=== PATIENT | female | born 1960 | race Caucasian/White ===

== ENCOUNTER → 2020-04-21 06:55 | Outpatient (CLI) | payer BC, SELFPAY ==
[2020-04-21 17:59] LABS: SARS-CoV-2 RNA PCR Negative
== END ==
PROVIDERS: PCP Family Medicine; Visit Provider Family Medicine
DX: Z20.822 Contact with and (suspected) exposure to COVID-19 (principal)
CPT/HCPCS: C9803; U0003; U0005

== ENCOUNTER → 2020-05-22 09:47 | Outpatient (CLI) | payer BC, SELFPAY ==
--- NOTE | ~2020-05-22 | MM_ITS ---
EXAMINATION: MM screening nba BI w barney HISTORY: Screening mammogram TECHNIQUE: Craniocaudal and mediolateral oblique 3-D tomosynthesis images were obtained and synthetic 2-D images were generated. CAD analysis was submitted and interpreted. COMPARISON: 12/07/2011 bilateral digital screening mammogram BREAST PARENCHYMAL COMPOSITION: The breasts are almost entirely fatty. FINDINGS: There is no evidence of suspicious mass, calcification, or architectural distortion to sugg est malignancy in either breast. There has been no suspicious interval change. IMPRESSION: 1. No mammographic evidence of malignancy. 2. Recommend routine screening mammography in one year. BI-RADS Category 1: Negative Reviewed, dictated and finalized at location A.
--- NOTE | ~2020-05-22 | DEXA_ITS ---
Bone Density Report Name: Priscila Hinson Age: 60 Sex: Female Ethnicity: White Date of : 1960 Indication: postmenopausal; screening for osteoporosis; hysterectomy; Referring Provider: TRISHA IRVING Study: Bone densitometry was performed. Exam Date: May 22, 2020 Accession number: [id number] Bone Density: Region BMD T-score Z-score Classification AP Spine (L1-L4) 0.979 -0.6 0.9 Normal Femoral Neck (Left) 0.794 -0.5 0.9 Normal Total Hip (Left) 0.925 -0.1 0.9 Normal Femoral Neck (Right) 0.711 -1.2 0.1 Osteopenia Total Hip (Right) 0.859 -0.7 0.4 Normal Total Hip Mean 0.892 -0.4 0.7 Normal World Health Organization criteria for BMD impression classify patients as: Normal (T-score at or above -1.0), Osteopenia (T-score between -1.0 and -2.5), or Osteoporosis (T-score at or below -2.5). 10-year Fracture Risk(1): Major Osteoporotic Fracture 7.4% Hip Fracture 0.5% Reported Risk Factors: [place] (), Neck BMD=0.711, BMI=33.3 (1) FRAX(R) Version 3.08. Fracture probability calculated for an untreated patient. Fracture probability may be lower if the patient has received treatment. Previous Exams: Region Exam Age BMD T-score BMD Change BMD Change Date g/cm2 vs Baseline vs Previous AP Spine(L1-L4) 05/22/2020 60 0.979 -0.6 -0.157* -0.157* 05/27/2008 48 1.135 0.8 Total Hip(Left) 05/22/2020 60 0.925 -0.1 -0.171* -0.171* 05/27/2008 48 1.096 1.3 Total Hip(Right) 05/22/2020 60 0.859 -0.7 -0.096* -0.096* 05/27/2008 48 0.955 0.1 *Denotes significance at 95% confidence level, LSC for AP Spine = 0.022 g/cm2, LSC for Total Hip = 0.027 g/cm2 Clinical Information Provided by Patient: Has the following medical conditions: Hysterectomy Patient maximum height was 70 Menopause Age: 35 No regular weight bearing exercise Does not regularly consume dairy products Drinks caffeinated beverages Onset of menses at age 9 Number of children 2 Impression: The patient has low bone mass, based on the Right Femoral Neck T-score. The patient has an estimated ten-year risk of hip fracture of 0.5% and an estimated ten-year risk of major fracture of 7.4%, based on the WHO FRAX algorithm. The BMD for the AP Spine(L1-L4) decreased, changing by -0.157 since the last DXA exam. The BMD for the Total Hip(Left) decreased, changing by -0.171 since the last DXA exam. The BMD for the [place]
== END ==
PROVIDERS: PCP Family Medicine; Visit Provider Family Medicine
DX: Z12.31 Encounter for screening mammogram for malignant neoplasm of breast (principal); Z78.0 Asymptomatic menopausal state; M85.851 Other specified disorders of bone density and structure, right thigh
CPT/HCPCS: 77063; 77067; 77080

== ENCOUNTER 2020-07-05 08:24 | Inpatient (IN) | payer BC, SELFPAY ==
[2020-07-05] VITALS (41 sets, daily range): BP systolic 127–161; BP diastolic 65–100; PULSE 73–103; RESP 10–20; TEMP 36.4–37.5; O2SAT 88–100
--- NOTE | ~2020-07-05 | CT_ITS ---
EXAMINATION: CT abdomen pelvis w con EXAM DATE: 07/05/2020 09:36 INDICATION: Intermittent abdominal pain for 3 days. Nausea and vomiting. Diarrhea. TECHNIQUE: Spiral CT of the abdomen and pelvis was performed following intravenous injection of 100 m L Omnipaque 350. Axial, coronal and sagittal images of the abdomen and pelvis were reviewed. The do se-length product (DLP) for this examination was 1313.95 mGy-cm. The exposure was tailored according to patient size (auto mA exposure control), and iterative reconstruction (ASIR) was used as addition al dose reduction technique. Comparison is made to prior examination from 10/12/2017. FINDINGS: Mild mesenteric lymphadenopathy, with slightly hazy fat stranding, effie mesentery appearan ce. Largest lymph node measures 1.8 x 0.9 cm. This has developed compared to 2018 exam. Could be reac tive from gastroenteritis, mesenteric adenitis or panniculitis. Recommend 3 month follow-up abdomen C T to exclude less likely possibility of lymphoma or other malignancy. There is hepatic steatosis without suspicious focal lesion identified. Spleen, adrenal glands, pancre as are unremarkable. There are cholecystectomy clips. Portal and splenic veins are patent. Kidneys enhance symmetrically. There is no hydronephrosis. The uterus is not identified and has likely be en surgically resected. The bladder is unremarkable. The appendix is normal. The stomach and small bowel are unremarkable. There is colonic fluid, corre late for diarrhea. No free intraperitoneal gas. The heart is normal in size. There are no perica rdial or pleural effusions. The lung bases are unremarkable. There are no osteoblastic or osteolyti c lesions identified. There is mild lumbar dextroscoliosis. IMPRESSION: 1. Interval development mild mesenteric lymphadenopathy and effie mesentery most likely consideration s including reactive from gastroenteritis, mesenteric adenitis and/or panniculitis. 3 month follow-up CT abdomen to exclude malignancy. 2. Colonic fluid, diarrhea. 3. Hepatic steatosis. Reviewed, dictated and finalized at location A. IMPRESSION: 1. Interval development mild mesenteric lymphadenopathy and effie mesentery mos t likely considerations including reactive from gastroenteritis, mesenteric ean nitis and/or panniculitis. 3 month follow-up CT abdomen to exclude malignancy. 2. Colonic fluid, diarrhea. 3. Hepatic steatosis.
--- NOTE | ~2020-07-05 | XR_ITS ---
XR chest 1V DATE: 07/05/2020 09:41 INDICATION: Mid to right frontal chest pain TECHNIQUE: AP chest COMPARISON: None FINDINGS: Normal heart size. No hilar or mediastinal enlargement. No pulmonary infiltrate or consolid ation, pleural effusion or pulmonary vascular congestion or pneumothorax. Included skeletal structures are unremarkable. IMPRESSION: No active cardiopulmonary disease Reviewed, dictated and finalized at location B.
--- NOTE | 2020-07-05 08:34 | ED.GENADULT ---
HPI - General Adult General Chief complaint: Nausea/Vomiting/Diarrhea Stated complaint: N/V/D/CHEST PAIN Source: RN notes reviewed History of Present Illness HPI narrative: Patient presents to emergency department from home via EMS for abdominal chest pain. Patient states he began to become sick 2 days ago with numerous episodes of diarrhea states is associated diffuse abdominal pain as well as nausea but denies any emesis. Patient states that she developed pain in the lower midsternal chest described as a pressure EMS was called and patient received Zofran 4 mg aspirin and nitro in route by EMS the patient denies any fevers or chills shortness of breath or any other symptoms states she took no pain medication at home Related Data Allergies Allergy/AdvReac Type Severity Reaction Status Date / Time No Known Allergies Allergy Unknown Verified 07/05/20 08:29 Review of Systems Review of Systems: Narrative: Gen.: Denies fevers or chills ENT: Denies congestion Respiratory: Denies shortness of breath or cough CV: Chest pain GI: See HPI denies burning, urgency, frequency or hematuria Musculoskeletal: Denies back pain or muscle pain Neuro: Denies numbness, tingling, weakness or focal weakness Skin: Denies rash Except as documented, all other systems reviewed and negative PMFSH Past Medical History Medical History Benign essential HTN Calcaneal fracture Chronic constipation Diabetes mellitus Gallbladder & bile duct stone, acute cholecystitis and obstruction GERD (gastroesophageal reflux disease) Hyperlipidemia Vitamin D insufficiency Surgical History Surgical History History of partial hysterectomy Hx of cholecystectomy Family History Family History Sibling Acute myocardial infarction Other Diabetes mellitus Family history of alcoholism Family history of arthritis Family history of cardiovascular disease Hypertension Social History Social History Social History: Smoking status: Never smoker Second hand tobacco smoke exposure: No Alcohol intake: never Substance use: never Substance use type: does not use Additional living arrangements comments: Pt son lives with her Gender identity (if verbalized by the patient): Female Exam Narrative: Exam Narrative: APPEARANCE: No acute distress, nontoxic, resting in bed HEENT: Normocephalic, atraumatic, OMM RESPIRATORY: No respiratory distress, clear to auscultation bilaterally with no rhonchi wheezing or rales CARDIOVASCULAR: RRR s murmur ABDOMINAL: Soft nondistended diffusely tender to palpation no rebound or guarding MUSCULOSKELETAl: Moves all extremities. No clubbing, cyanosis or edema. NEURO: Awake and alert. Following commands, speech normal, no focal deficits SKIN:: Warm, dry. Normal Color PSYCHIATRIC: Normal affect/mood Course Course Emergency Course: Patient unable to tolerate p.o. in ED : Discussed with KIARA Hearn for Dr Cornejo presentation work-up agrees with admission admission at this time Discussed with patient and family results of workup and diagnosis. Discussed need for admission. Patient and family understand and agree to current treatment plan Vital Signs Vital signs: Vital Signs Temperature 99.5 F 07/05/20 08:22 Pulse Rate 103 H 07/05/20 08:22 Respiratory Rate 18 07/05/20 08:22 Blood Pressure 158/89 H 07/05/20 08:22 Pulse Oximetry 97 07/05/20 08:22 Temperature 99.5 F 07/05/20 08:22 Pulse Rate 87 07/05/20 09:42 Respiratory Rate 14 07/05/20 09:42 Blood Pressure 127/100 H 07/05/20 09:01 Pulse Oximetry 97 07/05/20 09:42 Medical Decision Making Vital Signs Vital Signs: Vital Signs Temperature 99.5 F 07/05/20 08:22 Pulse Rate 103 H 07/05/20 08:22 Respiratory
--- NOTE | 2020-07-05 08:35 | ECG_ITS ---
Measurements Intervals [place] Rate: 102 P: 35 MD: 155 QRS: -5 QRSD: 93 T: 13 QT: 347 QTc: 452 Interpretive Statements SINUS TACHYCARDIA POSSIBLE LEFT ATRIAL ENLARGEMENT DELAYED PRECORDIAL R/S TRANSITION BASELINE ARTIFACT- I, II, III, AVR, AVL, AVF, V1, V3-V6 BORDERLINE ECG Electronically Signed On 07-05-2020 8:47:16 CDT by Giuseppe Bustillos D.O.
[2020-07-05] MEDS: SODIUM CHLORIDE 0.9% IV 1,000 ML 999 ML IV CONT ×2 (08:40→15:26)
[2020-07-05 08:52] LABS: Basophils Percent Auto 0.6 % (0.2-1.2); Eosinophils Percent Auto 0.5 % (0-4.4); Hematocrit 47.4 % (37.0-47.0); Hemoglobin 16.1 g/dL (12.0-15.0); Immature Granulocyte Absolute 0.03 K/mm3 (0.00-0.031); Immature Granulocyte Percent A 0.5 % (0-0.5); Lymphocytes Absolute Auto 0.53 K/mm3 (0.9-3.2); Lymphocytes Percent Auto 8.3 % (18.3-44.2); Mean Corpuscular Hemoglobin 29.2 pg (26-34); Mean Corpuscular Volume 85.9 fl (80-100); Mean Platelet Volume 10.8 fl (7.4-10.4); Monocytes Absolute Auto 0.6 K/mm3 (0.1-0.6); Monocytes Percent Auto 9.1 % (2.6-8.5); Neutrophils Absolute Auto 5.2 K/mm3 (1.3-6.7); Platelet Count Result 191 k/mm3 (150-375); Red Blood Count 5.52 M/mm3 (4.2-5.4); Red Cell Distribution Width 13.2 % (11.5-14.5); White Blood Count 6.4 K/mm3 (4.5-10.0)
[2020-07-05 09:01] LABS: Prothrombin Time 14.1 Seconds (11.1-14.7)
[2020-07-05 09:02] LABS: Partial Thromboplastin Time 27.8 SECONDS (22.3-36.8)
[2020-07-05 09:28] LABS: Estimated CRCL calculation 126 ml/min; Estimated Glomerular Filt Rate > 60
--- NOTE | 2020-07-05 09:45 | PC.NURSE ---
return from ct and xray
[2020-07-05 10:24] LABS: Alanine Aminotransferase 35 U/L (4-35); Albumin Level 4.4 g/dL (3.5-5.1); Alkaline Phosphatase 79 U/L (38-126); Anion Gap 14 mmol/L (8-16); Aspartate Amino Transferase 38 U/L (14-36); Bilirubin,Total 2.6 mg/dL (0.2-1.3); Blood Urea Nitrogen 16 mg/dL (7-17); Calcium 9.3 mg/dL (8.4-10.2); Carbon Dioxide 17 mmol/L (22-30); Chloride 104 mmol/L (98-107); Estimated CRCL calculation 107 ml/min; Estimated Glomerular Filt Rate > 60; Glucose 208 mg/dL (65-105); Lipase 56 U/L (23-300); Potassium 3.6 mmol/L (3.4-5.0); Sodium 135 mmol/L (137-145); Troponin I < 0.012 ng/mL (0.000-0.034)
[2020-07-05] MEDS: DICYCLOMINE HCL INJ 20 MG/2 ML VIAL IM (11:56)
[2020-07-05 12:30] LABS: Add Urine Microscopic? YES; Appearance Urine Clear (Clear); Bacteria Urine Trace /hpf; Bilirubin Urine Negative (Negative); Blood Urine Negative (Negative); Color Urine Yellow (Yellow); Glucose Urine UA 3+ mg/dL (Negative); Ketones Urine 2+ mg/dL (Negative); Leukocyte Esterase Ur Negative LEU/UL (Negative); Mucus Urine Rare /lpf; Nitrate Urine Negative (Negative); Protein Urine 1+ mg/dL (Negative); RBC Urine 0-2 /hpf (0-2); Squamous Epithelial Cell Urine Occasional /hpf (Few); Urobilinogen Urine Negative mg/dL (<2.0)
[2020-07-05 12:32] LABS: Specific Grav Ur 1.015 (1.001-1.035)
--- NOTE | 2020-07-05 17:00 | PC.NURSE ---
This patient, Priscila Hinson, was admitted to [facility] Surg Room 302-01 on 07/05/20 @ 7262. Patient/family oriented to hospital policies and general routines including ID bracelet, bed and alarms, visiting hours, pain management, procedures, bathroom and other care routines, personal items, smoking policy, room service/diet, and visiting hours. Information on how to activate the Rapid Response Team has been discussed. Patient/Family are encouraged to report perceived risks to care and to ask questions if they do not understand what they are told or what they should do.
[2020-07-05] MEDS: SODIUM CHLORIDE 0.9% IV 1,000 ML 125 ML IV CONT (17:05)
[2020-07-05 18:19] LABS: Anion Gap 12 mmol/L (8-16); Blood Urea Nitrogen 15 mg/dL (7-17); Calcium 8.8 mg/dL (8.4-10.2); Carbon Dioxide 22 mmol/L (22-30); Chloride 104 mmol/L (98-107); Estimated CRCL calculation 107 ml/min; Estimated Glomerular Filt Rate > 60; Glucose 136 mg/dL (65-105); Magnesium 1.9 mg/dL (1.6-2.3); Potassium 3.4 mmol/L (3.4-5.0); Sodium 138 mmol/L (137-145)
[2020-07-05 18:22] LABS: CRP 3.4 mg/dL (<1.0)
[2020-07-05 18:30] LABS: Hemoglobin A1C 7.8 % (<5.7)
--- NOTE | 2020-07-05 18:30 | PM.IMHP ---
H&P: HPI History of Present Illness Date/Time: 07/05/20 18:30 Chief Complaint: Nausea and abdominal pain. Narrative: This is a 60-year-old female with diabetes, hypertension, and hyperlipidemia presented to the emergency department earlier today from home for evaluation of nausea and abdominal pain. She woke up on Sunday morning with severe nausea to the point where she has not been able to eat or drink. She also reports generalized abdominal cramping and reports innumerable bouts of liquid yellow stools over the past 2 days. It is my understanding that she ran a temperature up to 101? on both Sunday and Sunday however has not been febrile today. Previously she had issues with constipation and at one point time was prescribed plecanatide for IBS with constipation however she is no longer taking that as her bowels became more regular after discontinuing Ozempic. In place of Ozempic she was started on Synjardy and she has been taking that for the past couple of weeks. She denies recent travel, sick contacts, and recent antibiotic use. She denies blood in mucus in the stool. Review of Systems Review of Systems: Narrative: Twelve systems were reviewed with pertinent positives and negatives as per HPI. Weight has remained stable. No sinus congestion, rhinorrhea, otalgia, or odynophagia. She denies dysphagia. No chest pain, pleuritic pain, or palpitations. No cough or shortness of breath. She does not recall her last hemoglobin A1c. It does not sound like her diabetes is well controlled and she tells me that while on Ozempic her sugars typically were in the 300s though now since starting Synjardy they have mainly been in the mid 200s. No dysuria. She did not get vaccinated for COVID. Except as documented, all other systems were reviewed and are negative. REPLACED BY [facility] Past Medical History Medical History (Updated 07/05/20 @ 20:42 by Nadiya Vasquez PA-C) Benign essential HTN Calcaneal fracture Diabetes mellitus Gallbladder & bile duct stone, acute cholecystitis and obstruction Gastroesophageal reflux disease History of colon polyps Hyperlipidemia Vitamin D insufficiency Surgical History Surgical History (Updated 07/05/20 @ 20:38 by Nadiya Vasquez PA-C) History of cholecystectomy History of dilation and curettage History of partial hysterectomy Status post right foot surgery ORIF of calcaneal fracture. Family History Family History Sibling Acute myocardial infarction Mother CLL (chronic lymphocytic leukemia) Father Colon cancer Other Diabetes mellitus Family history of alcoholism Family history of arthritis Family history of cardiovascular disease Hypertension Social History Social History (Updated 07/05/20 @ 20:39 by Nadiya Vasquez PA-C) Social History: Surrogate decision maker: Kerrie Gomez, daughter. Code status: Full code. Smoking status: Never smoker Second hand tobacco smoke exposure: No Alcohol intake: never Substance use: never Substance use type: does not use Additional living arrangements comments: The patient lives in [place]. Her son is at home with her. She is . 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 Gender identity (if verbalized by the patient): Female Spiritual care concerns: No Meds Home Medications and Allergies Home Medications Medication Instructions Recorded Confirmed Type atorvastatin 10 mg tablet 10 mg PO DAILY #90 tablet 01/02/20 07/05/20 Rx pantoprazole 40 mg tablet,delayed 40 mg PO QAM #90 tablet 01/02/20 07/05/20 Rx release glimepiride 1 mg tablet 1 mg PO BID #180 tablet 03/29/20 07/05/20 Rx lisinopril 10 mg tablet 10 mg PO DAILY #90 tablet 03/29/20 07/05/20 Rx empagliflozin-metformin [Synjardy 1 tablet PO HS 07/05/20 07/05/20 History XR] meloxicam 15 mg PO DAILY PRN 07/05/20 07/05/20 History Allergies Allerg
[2020-07-05] MEDS: ONDANSETRON INJ 4 MG/2 ML VIAL IV PUSH (20:36)
[2020-07-05] MEDS: PANTOPRAZOLE SODIUM IV 40 MG VIAL IV PUSH (22:01)
[2020-07-06] MEDS: ONDANSETRON INJ 4 MG/2 ML VIAL IV PUSH ×3 (00:48→18:15)
[2020-07-06] MEDS: LOPERAMIDE HCL 2 MG CAPSULE PO ×2 (00:48→20:48)
[2020-07-06] MEDS: SODIUM CHLORIDE 0.9% IV 1,000 ML 125 ML IV CONT ×3 (00:56→20:29)
[2020-07-06 04:25] LABS: Glucose Point of Care 152 (65-105)
[2020-07-06] MEDS: ACETAMINOPHEN 325 MG TABLET 650 MG PO (05:15)
[2020-07-06 06:00] VITALS: BP 133/75; PULSE 80; RESP 18; TEMP 36.6; O2SAT 100
[2020-07-06 06:05] LABS: Basophils Percent Auto 0.7 % (0.2-1.2); Eosinophils Percent Auto 0.9 % (0-4.4); Hematocrit 40.3 % (37.0-47.0); Hemoglobin 13.5 g/dL (12.0-15.0); Immature Granulocyte Absolute 0.02 K/mm3 (0.00-0.031); Immature Granulocyte Percent A 0.4 % (0-0.5); Lymphocytes Absolute Auto 0.71 K/mm3 (0.9-3.2); Lymphocytes Percent Auto 15.6 % (18.3-44.2); Mean Corpuscular HGB Conc 33.5 g/dl (32-36); Mean Corpuscular Hemoglobin 28.5 pg (26-34); Mean Corpuscular Volume 85.2 fl (80-100); Mean Platelet Volume 10.5 fl (7.4-10.4); Monocytes Absolute Auto 0.6 K/mm3 (0.1-0.6); Monocytes Percent Auto 13.4 % (2.6-8.5); Neutrophils Absolute Auto 3.1 K/mm3 (1.3-6.7); Platelet Count Result 152 k/mm3 (150-375); Red Blood Count 4.73 M/mm3 (4.2-5.4); Red Cell Distribution Width 13.2 % (11.5-14.5); White Blood Count 4.5 K/mm3 (4.5-10.0)
[2020-07-06 06:07] LABS: Glucose Point of Care 131 (65-105)
[2020-07-06 06:16] LABS: Alanine Aminotransferase 27 U/L (4-35); Albumin Level 3.4 g/dL (3.5-5.1); Alkaline Phosphatase 56 U/L (38-126); Anion Gap 6 mmol/L (8-16); Aspartate Amino Transferase 26 U/L (14-36); Bilirubin,Total 1.4 mg/dL (0.2-1.3); Blood Urea Nitrogen 13 mg/dL (7-17); Calcium 8.2 mg/dL (8.4-10.2); Carbon Dioxide 21 mmol/L (22-30); Chloride 108 mmol/L (98-107); Estimated CRCL calculation 107 ml/min; Estimated Glomerular Filt Rate > 60; Glucose 131 mg/dL (65-105); Magnesium 1.8 mg/dL (1.6-2.3); Potassium 3.3 mmol/L (3.4-5.0); Sodium 135 mmol/L (137-145)
[2020-07-06] MEDS: ATORVASTATIN 10 MG TABLET PO (08:39)
[2020-07-06] MEDS: lisinopriL 10 MG TABLET PO (08:39)
[2020-07-06] MEDS: PANTOPRAZOLE SODIUM IV 40 MG VIAL IV PUSH ×2 (08:39→20:30)
[2020-07-06 08:40] LABS: Glucose Point of Care 115 (65-105)
[2020-07-06] MEDS: POTASSIUM CHLORIDE 20 MEQ TABLET 40 MEQ PO (11:35)
[2020-07-06 11:42] LABS: Glucose Point of Care 130 (65-105)
--- NOTE | 2020-07-06 13:20 | WPDGICN ---
Assessment and Plan Assessment and plan (1) Gastroenteritis: Code(s): K52.9 - Noninfective gastroenteritis and colitis, unspecified Status: Acute Assessment and Plan: Patient with abrupt onset of nausea vomiting diarrhea strongly suspicious for infectious etiology. Cannot exclude viral or bacterial. Agree with broad-spectrum culturing. IV fluid rehydration and supportive care. If symptoms fail to improve then antibiotics may be considered after review of culture results. 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 This suspicious for irritable bowel syndrome. Ultimately patient may benefit from fiber supplementation. Her current illness appears to be more infectious rather than her longstanding underlying IBS. (6) Elevated bilirubin: Code(s): R17 - Unspecified jaundice Status: Acute Assessment and Plan: Review of records reveal a chronic mild elevation of total bilirubin. Patient does have history of cholecystectomy in the past. Most likely this is unrelated to gallbladder disease. Will check bilirubin fractions. To exclude possible underlying Gilbert's syndrome. Would follow conservatively no additional therapy and is felt warranted at this point GI Consult Note Consult date/time: 07/06/20 13:20 HPI: Priscila Hinson is a 60 year old female I am asked to see at the request of the hospitalist service. Patient reports being in usual state of health until Sunday. She abruptly began to have watery profuse diarrhea stools. This is continued prompting her to be admitted the hospital. During this interval of time also had significant nausea initially with vomiting but still no appetite. She denies any bleeding. She may have felt febrile at home. But has had no significant fever since admission hospital. Patient denies any travel. She has had no recent unusual dietary intake. Family members at home have been healthy. She has had no recent change in medications. Past medical history is significant for irritable bowel syndrome with alternation in her bowel habits. Because of chronic constipation in the past she has taken Linzess. More recently fiber supplementation. Colonoscopy in 2012 revealed a hyperplastic colon polyp more recent follow-up colonoscopy was unremarkable 2018. An EGD approximately fiber 6 years ago was unremarkable as well. Patient has been treated for diabetes with various medications under the direction primary care service. Review of Systems Review of Systems: All systems reviewed & are unremarkable except as noted in HPI and below PMFSH Past Medical History Medical History (Updated 07/06/20 @ 13:26 by Delfino Velez MD) Benign essential HTN Calcaneal fracture Diabetes mellitus Gallbladder & bile duct stone, acute cholecystitis and obstruction Gastroesophageal reflux disease History of colon polyps Hyperlipidemia Vitamin D insufficiency Surgical History Surgical History (Updated 07/05/20 @ 20:38 by Nadiya Vasquez PA-C) History of cholecystectomy History of dilation and curettage History of partial hysterectomy Status post right foot surgery ORIF of calcaneal fracture. Family History Family History (
[2020-07-06 14:00] VITALS: BP 121/59; PULSE 70; RESP 16; TEMP 36.2; O2SAT 99
[2020-07-06 14:32] LABS: Bilirubin Indirect 1.6 mg/dL (0-1.1); Bilirubin,Total 1.5 mg/dL (0.2-1.3)
--- NOTE | 2020-07-06 15:04 | PM.IMPN ---
Progress Note: A&P Assessment and Plan (1) Gastroenteritis: Code(s): K52.9 - Noninfective gastroenteritis and colitis, unspecified Status: Acute Assessment and Plan: 07/06/20 15:04 The patient presents today with diffuse abdominal discomfort and severe nausea with no reported oral intake over the past [address] of the abdomen and pelvis demonstrated mild mesenteric lymphadenopathy in effie mesentery likely reactive from gastroenteritis, mesenteric adenitis and/or panniculitis. White blood cell count is normal and she has been afebrile (although reportedly had a fever of 101? over the weekend) thus I am not certain antibiotics would be of any benefit at this time. For now we will send stool for culture and treat conservatively with judicious IV fluid rehydration, antiemetics, and anti motility agents. She is quite dehydrated with ketones in her urine however DKA is felt to be unlikely. In fact a repeat BMP showed improvement in all labs. Total bilirubin and AST are mildly elevated, likely due to viral gastroenteritis. Repeat LFTs in a.m. and monitor. Her glucose was well over 300 today. Hemoglobin A1c is pending at this time. Initiate sliding scale insulin, Accu-Cheks, and hypoglycemic protocol. Her blood pressures have been running a bit high and will be monitored closely. Continue antihypertensives and monitor daily. 07/06 today patient states the pain is not as bad and has had 2 BM still nauseated, suspect viral versus bacterial enteritis stool culture the pending, denies any fever or chills, will consult GI for further recommendation. (2) Dehydration: Code(s): E86.0 - Dehydration Status: Acute Assessment and Plan: Will gently hydrate the patient (3) Elevated LFTs: Code(s): R79.89 - Other specified abnormal findings of blood chemistry Status: Acute Assessment and Plan: Patient total bilirubin remains elevated alkaline phosphatase is within normal unlikely obstruction will consult GI for further recommendation (4) Gastroesophageal reflux disease: Code(s): K21.9 - Gastro-esophageal reflux disease without esophagitis Status: Acute Assessment and Plan: Will continue PPI (5) Benign essential HTN: Code(s): I10 - Essential (primary) hypertension Status: Acute Assessment and Plan: Will continue home regimen and monitor (6) Diabetes mellitus: Qualifiers: Diabetes mellitus type: type 2 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 Additional Plan The patient presents today with diffuse abdominal discomfort and severe nausea with no reported oral intake over the past [address] of the abdomen and pelvis demonstrated mild mesenteric lymphadenopathy in effie mesentery likely reactive from gastroenteritis, mesenteric adenitis and/or panniculitis. White blood cell count is normal and she has been afebrile (although reportedly had a fever of 101? over the weekend) thus I am not certain antibiotics would be of any benefit at this time. For now we will send stool for culture and treat conservatively with judicious IV fluid rehydration, antiemetics, and anti motility agents. She is quite dehydrated with ketones in her urine however DKA is felt to be unlikely. In fact a repeat BMP showed improvement in all labs. Total bilirubin and AST are mildly elevated, likely due to viral gastroenteritis. Repeat LFTs in a.m. and monitor. Her glucose was well over 300 today. Hemoglobin A1c is pending at this time. Initiate sliding scale insulin, Accu-Cheks, and hypoglycemic protocol. Her blood pressures singh
[2020-07-06 17:30] LABS: Glucose Point of Care 123 mg/dl (65-105)
[2020-07-06 21:31] VITALS: BP 136/68; PULSE 74; RESP 18; TEMP 36.9; O2SAT 97
[2020-07-07] MEDS: ONDANSETRON INJ 4 MG/2 ML VIAL IV PUSH ×2 (00:28→04:54)
[2020-07-07] MEDS: ACETAMINOPHEN 325 MG TABLET 650 MG PO ×3 (00:32→15:25)
[2020-07-07 00:45] LABS: Glucose Point of Care 107 mg/dl (65-105)
[2020-07-07 00:58] LABS: Glucose Point of Care 128 mg/dl (65-105)
[2020-07-07] MEDS: LOPERAMIDE HCL 2 MG CAPSULE PO ×2 (01:51→04:54)
[2020-07-07] MEDS: SODIUM CHLORIDE 0.9% IV 1,000 ML 100 ML IV CONT ×2 (04:45→15:23)
[2020-07-07 05:31] VITALS: BP 123/57; PULSE 58; RESP 18; TEMP 36.5; O2SAT 98
[2020-07-07 06:14] LABS: Hematocrit 39.1 % (37.0-47.0); Hemoglobin 13.2 g/dL (12.0-15.0); Mean Corpuscular HGB Conc 33.8 g/dl (32-36); Mean Corpuscular Hemoglobin 28.5 pg (26-34); Mean Corpuscular Volume 84.4 fl (80-100); Mean Platelet Volume 10.7 fl (7.4-10.4); Platelet Count Result 153 k/mm3 (150-375); Red Blood Count 4.63 M/mm3 (4.2-5.4); Red Cell Distribution Width 13.2 % (11.5-14.5); White Blood Count 3.5 K/mm3 (4.5-10.0)
[2020-07-07 06:17] LABS: Glucose Point of Care 118 mg/dl (65-105)
[2020-07-07 06:30] LABS: Alanine Aminotransferase 25 U/L (4-35); Alkaline Phosphatase 48 U/L (38-126); Anion Gap 4 mmol/L (8-16); Aspartate Amino Transferase 26 U/L (14-36); Bilirubin,Total 1.5 mg/dL (0.2-1.3); Blood Urea Nitrogen 6 mg/dL (7-17); Calcium 8.3 mg/dL (8.4-10.2); Carbon Dioxide 23 mmol/L (22-30); Chloride 112 mmol/L (98-107); Estimated CRCL calculation 126 ml/min; Estimated Glomerular Filt Rate > 60; Glucose 118 mg/dL (65-105); Magnesium 1.8 mg/dL (1.6-2.3); Potassium 3.1 mmol/L (3.4-5.0); Sodium 139 mmol/L (137-145)
[2020-07-07 07:45] LABS: Glucose Point of Care 116 mg/dl (65-105)
[2020-07-07] MEDS: PANTOPRAZOLE SODIUM IV 40 MG VIAL IV PUSH ×2 (08:19→20:59)
[2020-07-07] MEDS: lisinopriL 10 MG TABLET PO (08:19)
[2020-07-07] MEDS: ATORVASTATIN 10 MG TABLET PO (08:19)
--- NOTE | 2020-07-07 10:45 | WPDGIPROGNO ---
Progress Note: A&P Assessment and Plan (1) Gastroenteritis: Code(s): K52.9 - Noninfective gastroenteritis and colitis, unspecified Status: Acute Assessment and Plan: gastroenteritis with nausea vomiting diarrhea. Appears to be infectious etiology. Currently correlates with CT scan finding of adenitis. Will start broad-spectrum antibiotic coverage now the cultures have been obtained. (2) Elevated bilirubin: Code(s): R17 - Unspecified jaundice Status: Acute Assessment and Plan: Elevated bilirubin noticed on previous lab testing. Likely related to Gilbert's syndrome. She has previously had cholecystectomy. No evidence for obstruction in the biliary tree (3) IBS (irritable bowel syndrome): Code(s): K58.9 - Irritable bowel syndrome without diarrhea Status: Acute (4) Mesenteric adenitis: Code(s): I88.0 - Nonspecific mesenteric lymphadenitis Status: Acute Assessment and Plan: CT scan suggest mesenteric adenitis. This is somewhat nonspecific. Could be a viral infection. Plan to start broad-spectrum antibiotics for coverage likely this correlates with her abdominal pain and diarrhea. Subjective Date/time seen: 07/07/20 10:45 Patient continues to report diarrhea. No more nausea or vomiting. She had some improvement with Imodium trial. Reports abdominal pain appears to be Continuing to some degree.. Review of Systems Review of Systems: All systems reviewed & are unremarkable except as noted in HPI and below Exam Narrative: Exam Narrative: Physical exam reveals her to be alert. Afebrile. Anicteric. Lungs are clear. Heart without murmur. Abdomen bowel sounds present soft no localized tenderness. She does have more discomfort on the right low abdomen compared to elsewhere. Objective Data Vital Signs Vital Signs: Vital Signs - 24 hr 07/06/20 14:00 07/06/20 21:31 07/07/20 05:31 Temperature 97.1 F L 98.4 F 97.7 F Pulse Rate 70 74 58 L Respiratory Rate 16 18 18 Blood Pressure 121/59 L 136/68 123/57 L Pulse Oximetry 99 97 98 Intake/Output Intake/Output: Intake & Output 07/04/20 07/05/20 07/06/20 07/07/20 23:59 23:59 23:59 23:59 Intake Total 1100 4520 1710 Output Total 200 300 100 Balance 900 4220 1610 Meds/Results Medications: Active Medications Generic Name Dose Route Start Last Admin Trade Name Freq PRN Reason Stop Dose Admin Acetaminophen 650 mg 07/05/20 20:51 07/07/20 08:22 Acetaminophen 325 Mg Tablet PO 650 mg Q6H PRN Administration Pain Atorvastatin Calcium 10 mg 07/06/20 09:00 07/07/20 08:19 Atorvastatin 10 Mg Tablet PO 10 mg DAILY SHAHEEN Administration Dextrose 12.5 gm 07/05/20 20:48 Dextrose 50% 25 Gm/50 Ml Syringe IV PUSH PRN PRN Hypoglycemia Protocol Glucagon 1 mg 07/05/20 20:48 Glucagon For Inj 1 Mg Vial IM PRN PRN Hypoglycemia Protocol Glucose 15 gm 07/05/20 20:48 Glucose Oral Gel 15 Gm Of Glucse In 37.5 Gm Tube PO PRN PRN Hypoglycemia Protocol Sodium Chloride 1,000 mls @ 100 mls/hr 07/05/20 14:20 07/07/20 04:45 Normal Saline Iv IV CONT 100 mls/hr .Q10H SHAHEEN Administration Dextrose 1,000 mls @ 100 mls/hr 07/05/20 20:48 Dextrose 5% 1,000 Ml IVPB PRN PRN Hypoglycemia Protocol Insulin Aspart 3 - 6 units 07/06/20 08:00 07/07/20 07:53 Insulin Aspart (*Bkc) 100 Units/Ml SUB-Q Not Given TIDWM SHAHEEN Protocol Lisinopril 10 mg 07/06/20 09:00 07/07/20 08:19 Lisinopril 10 Mg Tablet PO 10 mg DAILY SHAHEEN Administration Loperamide HCl 2 mg 07/05/20 20:48 07/07/20 04:54 Loperamide Hcl 2 Mg Capsule PO 2 mg PRN PRN Administration Diarrhea Ondansetron HCl 4 mg 07/05/20 14:18 07/07/20 04:54 Ondansetron Inj 4 Mg/2 Ml Vial IV PUSH 4 mg Q4H PRN Administration Nausea Pantoprazole Sodium 40 mg 07/05/20 21:00 07/07/20 08:19 Pantoprazole Sodium I
[2020-07-07 11:33] LABS: Glucose Point of Care 141 mg/dl (65-105)
[2020-07-07] MEDS: metroNIDAZOLE 250 MG TABLET PO ×3 (13:51→20:58)
[2020-07-07 14:00] VITALS: BP 123/63; PULSE 64; RESP 20; TEMP 36.4; O2SAT 99
[2020-07-07 15:02] LABS: Alanine Aminotransferase 25 U/L (4-35); Albumin Level 3.2 g/dL (3.5-5.1); Alkaline Phosphatase 57 U/L (38-126); Anion Gap 4 mmol/L (8-16); Aspartate Amino Transferase 23 U/L (14-36); Bilirubin,Total 1.4 mg/dL (0.2-1.3); Blood Urea Nitrogen 5 mg/dL (7-17); CRP 1.3 mg/dL (<1.0); Calcium 8.5 mg/dL (8.4-10.2); Carbon Dioxide 24 mmol/L (22-30); Chloride 111 mmol/L (98-107); Estimated CRCL calculation 107 ml/min; Estimated Glomerular Filt Rate > 60; Glucose 143 mg/dL (65-105); Potassium 3.1 mmol/L (3.4-5.0); Sodium 139 mmol/L (137-145)
[2020-07-07 15:19] LABS: Erythrocyte Sedimentation Rate 20 mm/hr (0-20)
--- NOTE | 2020-07-07 15:27 | PM.IMPN ---
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 of the abdomen and pelvis demonstrated mild mesenteric lymphadenopathy in effie mesentery likely reactive from gastroenteritis, mesenteric adenitis and/or panniculitis. White blood cell count is normal and she has been afebrile (although reportedly had a fever of 101? over the weekend) thus I am not certain antibiotics would be of any benefit at this time. For now we will send stool for culture and treat conservatively with judicious IV fluid rehydration, antiemetics, and anti motility agents. She is quite dehydrated with ketones in her urine however DKA is felt to be unlikely. In fact a repeat BMP showed improvement in all labs. Total bilirubin and AST are mildly elevated, likely due to viral gastroenteritis. Repeat LFTs in a.m. and monitor. Her glucose was well over 300 today. Hemoglobin A1c is pending at this time. Initiate sliding scale insulin, Accu-Cheks, and hypoglycemic protocol. Her blood pressures have been running a bit high and will be monitored closely. Continue antihypertensives and monitor daily. Patient hemoglobin A1c 7.8 will monitor with sliding scale. 07/06 today patient states the pain is not as bad and has had 2 BM still nauseated, suspect viral versus bacterial enteritis stool culture the pending, denies any fever or chills, will consult GI for further recommendation. Patient total bilirubin remains elevated alkaline phosphatase is within normal unlikely obstruction will consult GI for further recommendation 07/07/2020 patient improving but not yet at baseline. Continue current care. Anticipate her to be discharged home tomorrow in a.m.. Subjective Date/time seen: 07/07/20 15:27 Patient starting to feel better last episode of diarrhea last night, still with nausea Exam Narrative: Exam Narrative: GEN: comfortable, NAD, Moderately obese HEENT: eyes are clear and none icteric, EOMI HEART: RR S1S2 ABD: BS+, Soft and diffusely tender Lower extremities: no edema SKIN: nonjaundiced Neuro: grossly intact. Objective Data Vital Signs Vital Signs: Vital Signs - 24 hr 07/06/20 21:31 07/07/20 05:31 07/07/20 14:00 Temperature 98.4 F 97.7 F 97.6 F Pulse Rate 74 58 L 64 Respiratory Rate 18 18 20 Blood Pressure 136/68 123/57 L 123/63 Pulse Oximetry 97 98 99 Intake/Output Intake/Output: Intake & Output 07/04/20 07/05/20 07/06/20 07/07/20 23:59 23:59 23:59 23:59 Intake Total 1100 4520 2830 Output Total 200 300 100 Balance 900 4220 2730 Meds/Results Medications: Active Medications Generic Name Dose Route Start Last Admin Trade Name Freq PRN Reason Stop Dose Admin Acetaminophen 650 mg 07/05/20 20:51 07/07/20 15:25 Acetaminophen 325 Mg Tablet PO 650 mg Q6H PRN Administration Pain RATED 1-3 Atorvastatin Calcium 10 mg 07/06/20 09:00 07/07/20 08:19 Atorvastati
[2020-07-07 16:01] LABS: D Dimer 0.46 ug/mL (<0.48)
[2020-07-07 16:33] LABS: Glucose Point of Care 128 mg/dl (65-105)
[2020-07-07] MEDS: CIPROFLOXACIN 250 MG TABLET PO (20:58)
[2020-07-07 21:14] LABS: Glucose Point of Care 185 mg/dl (65-105)
[2020-07-07 22:00] VITALS: BP 109/51; PULSE 63; RESP 20; TEMP 36.2; O2SAT 98
[2020-07-08] MEDS: oxyCODONE/ACETAMINOPHEN (*CRX) 5-325 MG TABLET 1 TABLET PO (01:09)
[2020-07-08] MEDS: SODIUM CHLORIDE 0.9% IV 1,000 ML 100 ML IV CONT ×2 (01:16→11:42)
[2020-07-08 05:56] VITALS: BP 117/62; PULSE 58; RESP 20; TEMP 36.3; O2SAT 98
[2020-07-08 06:28] LABS: Hemoglobin 12.5 g/dL (12.0-15.0); Mean Corpuscular HGB Conc 33.8 g/dl (32-36); Mean Corpuscular Volume 85.8 fl (80-100); Mean Platelet Volume 10.7 fl (7.4-10.4); Platelet Count Result 165 k/mm3 (150-375); Red Blood Count 4.31 M/mm3 (4.2-5.4); Red Cell Distribution Width 13.2 % (11.5-14.5); White Blood Count 3.9 K/mm3 (4.5-10.0)
[2020-07-08 06:40] LABS: Alanine Aminotransferase 22 U/L (4-35); Albumin Level 3.1 g/dL (3.5-5.1); Alkaline Phosphatase 54 U/L (38-126); Anion Gap 5 mmol/L (8-16); Aspartate Amino Transferase 19 U/L (14-36); Bilirubin,Total 1.1 mg/dL (0.2-1.3); Blood Urea Nitrogen 5 mg/dL (7-17); Calcium 8.4 mg/dL (8.4-10.2); Carbon Dioxide 24 mmol/L (22-30); Chloride 111 mmol/L (98-107); Estimated CRCL calculation 126 ml/min; Estimated Glomerular Filt Rate > 60; Glucose 148 mg/dL (65-105); Magnesium 1.7 mg/dL (1.6-2.3); Sodium 140 mmol/L (137-145)
[2020-07-08 07:46] LABS: Glucose Point of Care 151 mg/dl (65-105)
--- NOTE | 2020-07-08 08:44 | WPDGIPROGNO ---
Progress Note: A&P Assessment and Plan (1) Mesenteric adenitis: Code(s): I88.0 - Nonspecific mesenteric lymphadenitis Status: Acute Assessment and Plan: Mesenteric adenitis suggested by CT scan. This appears to correlate with her symptoms of nausea vomiting diarrhea and abdominal pain. At the present time continue a 1 week course of Cipro and Flagyl empirically. This may be viral versus infectious. Patient is clinically improving. Suggest advancing to regular diet in early discharge today if others agree. (2) Elevated bilirubin: Code(s): R17 - Unspecified jaundice Status: Acute Assessment and Plan: A bilirubin is been present for some time. Could be related to infection. Cannot exclude Gilbert's syndrome. No additional workup warranted at this time. Patient has had previous cholecystectomy. (3) Gastroenteritis: Code(s): K52.9 - Noninfective gastroenteritis and colitis, unspecified Status: Acute Assessment and Plan: Patient's symptom complex most consistent with infectious gastroenteritis. She does have mesenteric adenitis by CT scan. Now on Flagyl and Cipro. Suggest 10 you in this for 1 week after discharge empirically. Cultures have been negative to date. Subjective Date/time seen: 07/08/20 08:44 Patient feels much improved today. Abdominal pain has lessened. Tolerating diet. Diarrhea has improved as well. No longer with nausea. Review of Systems Review of Systems: All systems reviewed & are unremarkable except as noted in HPI and below Exam Narrative: Exam Narrative: Physical exam reveals patient be alert. Vital signs are stable. She is afebrile. HEENT exam reveals her to be anicteric. Lungs are clear. Heart without murmur. Abdomen bowel sounds are present soft nontender with no organomegaly. Digital rectal exam is deferred at this Objective Data Vital Signs Vital Signs: Vital Signs - 24 hr 07/07/20 14:00 07/07/20 22:00 07/08/20 05:56 Temperature 97.6 F 97.2 F L 97.4 F L Pulse Rate 64 63 58 L Respiratory Rate 20 20 20 Blood Pressure 123/63 109/51 L 117/62 Pulse Oximetry 99 98 98 Intake/Output Intake/Output: Intake & Output 07/05/20 07/06/20 07/07/20 07/08/20 23:59 23:59 23:59 23:59 Intake Total 1100 4520 4270 1200 Output Total 200 300 100 Balance 900 4220 4170 1200 Meds/Results Medications: Active Medications Generic Name Dose Route Start Last Admin Trade Name Freq PRN Reason Stop Dose Admin Acetaminophen 650 mg 07/05/20 20:51 07/07/20 15:25 Acetaminophen 325 Mg Tablet PO 650 mg Q6H PRN Administration Pain RATED 1-3 Atorvastatin Calcium 10 mg 07/06/20 09:00 07/07/20 08:19 Atorvastatin 10 Mg Tablet PO 10 mg DAILY SHAHEEN Administration Ciprofloxacin 250 mg 07/07/20 21:00 07/07/20 20:58 Ciprofloxacin 250 Mg Tablet PO 250 mg Q12HR SHAHEEN Administration Dextrose 12.5 gm 07/05/20 20:48 Dextrose 50% 25 Gm/50 Ml Syringe IV PUSH PRN PRN Hypoglycemia Protocol Glucagon 1 mg 07/05/20 20:48 Glucagon For Inj 1 Mg Vial IM PRN PRN Hypoglycemia Protocol Glucose 15 gm 07/05/20 20:48 Glucose Oral Gel 15 Gm Of Glucse In 37.5 Gm Tube PO PRN PRN Hypoglycemia Protocol Sodium Chloride 1,000 mls @ 100 mls/hr 07/05/20 14:20 07/08/20 01:16 Normal Saline Iv IV CONT 100 mls/hr .Q10H SHAHEEN Administration Dextrose 1,000 mls @ 100 mls/hr 07/05/20 20:48 Dextrose 5% 1,000 Ml IVPB PRN PRN Hypoglycemia Protocol Insulin Aspart 3 - 6 units 07/06/20 08:00 07/08/20 08:24 Insulin Aspart (*Bkc) 100 Units/Ml SUB-Q Not Given TIDWM SHAHEEN Protocol Lisinopril 10 mg 07/06/20 09:00 07/07/20 08:19 Lisinopril 10 Mg Tablet PO 10 mg DAILY SHAHEEN Administration Loperamide HCl 2 mg 07/05/20 20:48 07/07/20 04:54 Loperamide Hcl 2 Mg Capsule PO 2 mg PRN PRN Administration Diarrhea Metronidazole
[2020-07-08] MEDS: ATORVASTATIN 10 MG TABLET PO (08:50)
[2020-07-08] MEDS: CIPROFLOXACIN 250 MG TABLET PO (08:50)
[2020-07-08] MEDS: metroNIDAZOLE 250 MG TABLET PO ×2 (08:51→13:49)
[2020-07-08] MEDS: lisinopriL 10 MG TABLET PO (08:51)
[2020-07-08] MEDS: PANTOPRAZOLE SODIUM IV 40 MG VIAL IV PUSH (08:51)
[2020-07-08] MEDS: ACETAMINOPHEN 325 MG TABLET 650 MG PO (11:25)
[2020-07-08 12:12] LABS: Glucose Point of Care 187 mg/dl (65-105)
[2020-07-08] MEDS: ONDANSETRON HCL ODT 4 MG TABLET PO (12:32)
--- NOTE | 2020-07-08 17:49 | PM.DS ---
DS: Admitting Diagnosis Admitting Diagnosis Admitting Diagnosis: (1) Gastroenteritis: Code(s): K52.9 - Noninfective gastroenteritis and colitis, unspecified Status: Acute (2) Dehydration: Code(s): E86.0 - Dehydration Status: Acute (3) Elevated LFTs: Code(s): R79.89 - Other specified abnormal findings of blood chemistry Status: Acute (4) Gastroesophageal reflux disease: Code(s): K21.9 - Gastro-esophageal reflux disease without esophagitis Status: Acute (5) Benign essential HTN: Code(s): I10 - Essential (primary) hypertension Status: Acute (6) Diabetes mellitus: Qualifiers: Diabetes mellitus type: type 2 Diabetes 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 DS: Discharge Diagnosis Discharge Diagnosis (1) Infectious gastroenteritis: Code(s): A09 - Infectious gastroenteritis and colitis, unspecified Status: Acute (2) Elevated bilirubin: Code(s): R17 - Unspecified jaundice Status: Acute (3) IBS (irritable bowel syndrome): Code(s): K58.9 - Irritable bowel syndrome without diarrhea Status: Acute (4) Elevated LFTs: Code(s): R79.89 - Other specified abnormal findings of blood chemistry Status: Acute (5) Mesenteric adenitis: Code(s): I88.0 - Nonspecific mesenteric lymphadenitis Status: Acute (6) Dehydration: Code(s): E86.0 - Dehydration Status: Acute (7) Gastroesophageal reflux disease: Code(s): K21.9 - Gastro-esophageal reflux disease without esophagitis Status: Acute (8) Diarrhea: Code(s): R19.7 - Diarrhea, unspecified Status: Acute (9) Nausea and vomiting: Code(s): R11.2 - Nausea with vomiting, unspecified Status: Acute (10) Abdominal pain: Code(s): R10.9 - Unspecified abdominal pain Status: Acute DS: Summary Hospital Course Hospital Course: The patient presents today with diffuse abdominal discomfort and severe nausea with no reported oral intake over the past [address] of the abdomen and pelvis demonstrated mild mesenteric lymphadenopathy in effie mesentery likely reactive from gastroenteritis, mesenteric adenitis and/or panniculitis. White blood cell count is normal and she has been afebrile (although reportedly had a fever of 101? over the weekend) thus I am not certain antibiotics would be of any benefit at this time. For now we will send stool for culture and treat conservatively with judicious IV fluid rehydration, antiemetics, and anti motility agents. She is quite dehydrated with ketones in her urine however DKA is felt to be unlikely. In fact a repeat BMP showed improvement in all labs. Total bilirubin and AST are mildly elevated, likely due to viral gastroenteritis. Repeat LFTs in a.m. and monitor. Her glucose was well over 300 today. Hemoglobin A1c is pending at this time. Initiate sliding scale insulin, Accu-Cheks, and hypoglycemic protocol. Her blood pressures have been running a bit high and will be monitored closely. Continue antihypertensives and monitor daily GI was consulted and pt was maintained on IV abx for suspected infectious gastroenteritis. She was rehydrated w IVFs. She improved slowly and at time of discharge was tolerating PO w mild nausea likely associated w abx therapy. Diarrhea had resolved as well as vomiting. Pt discharged home in stable condition and advised to follow up w her PCP and GI for ongoing care and follow up imaging. Time Spent with Patient Time attestation: Total time spent providing >30 min Exam Narrative: Exam Narrative: GEN: comfortable, NAD, Moderately obese HEENT: eyes are clear and none icteric, EOM
== END 2020-07-08 14:50 | disposition home or self-care (01) | DRG 392 ==
LOC: ANHED 14:21 → ANH3MEDSUR 16:05
PROVIDERS: Family Medicine; Internal Medicine Gastroenterology; Physician Assistant; Admitting Provider Internal Medicine; Emergency Provider Emergency Medicine; PCP Family Medicine; Visit Provider Hospitalist
DX: A09 Infectious gastroenteritis and colitis, unspecified (principal); R17 Unspecified jaundice; E86.0 Dehydration; I88.0 Nonspecific mesenteric lymphadenitis; I10 Essential (primary) hypertension; E11.9 Type 2 diabetes mellitus without complications; K21.9 Gastro-esophageal reflux disease without esophagitis; E78.5 Hyperlipidemia, unspecified; E55.9 Vitamin D deficiency, unspecified; E66.9 Obesity, unspecified; Z68.32 Body mass index [BMI] 32.0-32.9, adult; Z90.49 Acquired absence of other specified parts of digestive tract; Z90.711 Acquired absence of uterus with remaining cervical stump
CPT/HCPCS: 36415; 51701; 71045; 74177; 80048; 80053; 81001; 82247; 82248; 82948; 83036; 83690; 83735; 84484; 85025; 85027; 85380; 85610; 85652; 85730; 86140; 87015; 87045; 87046; 87269; 87272; 87427; 93005; 96361; 96365; 96372; 96375; 96376; 99285; A9270; C9113; G0378; J0131; J0500; J2405; J7030; Q9967

== ENCOUNTER → 2021-07-29 15:42 | Outpatient (CLI) | payer BC, SELFPAY ==
--- NOTE | ~2021-07-29 | XR_ITS ---
EXAMINATION: XR chest 2V 07/29/2021 16:01 INDICATION: Fatigue PROCEDURE: 2 view chest COMPARISON: 07/05/2020 FINDINGS: The lungs are clear. The cardiomediastinal silhouette is within normal limits. There are no pleural effusions. There is no pneumothorax suspected. IMPRESSION: 1: NO ACUTE CARDIOPULMONARY DISEASE. Reviewed, dictated and finalized at location B.
== END ==
PROVIDERS: PCP Family Medicine; Visit Provider Nurse Practitioner Gerontology
DX: R53.83 Other fatigue (principal)
CPT/HCPCS: 71046

== ENCOUNTER → 2021-08-10 07:35 | Outpatient (CLI) | payer BC, SELFPAY ==
--- NOTE | ~2021-08-10 | MMUS_ITS ---
EXAMINATION: MM diagnostic nba BI w barney, US breast LT limited HISTORY: 2 medial left breast lumps TECHNIQUE: ML, MLO and CC 3-D tomosynthesis images of both breasts were performed and synthetic 2-D i mages were generated. CAD analysis was submitted and interpreted. High resolution targeted left breas t ultrasound was performed. COMPARISON: 06/08/2020, 12/07/2011 bilateral screening mammogram examinations BREAST PARENCHYMAL COMPOSITION: The breasts are almost entirely fatty. FINDINGS: MAMMOGRAPHIC FINDINGS: No suspicious mass or architectural distortion, malignant calcification, skin thickening or retractio n or significant new or developing density is detected. ULTRASOUND: Targeted ultrasound was performed at the area of clinical complaint of medial left breast lumps at 9: 00 8 cm from the nipple. No suspicious mass or shadowing is detected. IMPRESSION: 1. No mammographic evidence of malignancy 2. Routine mammographic screening is recommended BI-RADS Category 1: Negative Reviewed, dictated and finalized at location A. IMPRESSION: 1. No mammographic evidence of malignancy 2. Routine mammographic screening is recommended BI-RADS Category 1: Negative
== END ==
PROVIDERS: PCP Family Medicine; Visit Provider Nurse Practitioner Gerontology
DX: R92.8 Other abnormal and inconclusive findings on diagnostic imaging of breast (principal); N63.25 Unspecified lump in the left breast, overlapping quadrants
CPT/HCPCS: 76642; 77062; 77066; G0279

== ENCOUNTER 2021-08-12 14:41 | Outpatient (CLI) | payer BC, SELFPAY ==
--- NOTE | ~2021-08-12 | XR_ITS ---
EXAMINATION: XR thoracic spine 3V DATE: 08/12/2021 15:22 INDICATION: Thoracic back pain TECHNIQUE: AP, lateral and lateral swimmer's views of the thoracic spine were obtained. COMPARISON: None. FINDINGS: The vertebral body heights and alignment are normal. There is moderate loss of intervertebr al disc space height at multiple levels in the thoracic spine. Small degenerative osteophytes project from the anterior endplates of multiple vertebral bodies. IMPRESSION: 1. Moderate thoracic spondylosis without acute findings. Reviewed, dictated and finalized at location F.
== END 2021-08-12 14:42 | disposition home or self-care (01) ==
PROVIDERS: PCP Family Medicine; Visit Provider Family Medicine
DX: M47.894 Other spondylosis, thoracic region (principal)
CPT/HCPCS: 72072

== ENCOUNTER 2021-11-10 09:35 | Outpatient (CLI) | payer BC, SELFPAY ==
--- NOTE | ~2021-11-10 | US_ITS ---
EXAMINATION: US pelvic complete w TV DATE: 11/10/2021 10:11 INDICATION: Right adnexal pain for one and half months. Comparison:No prior studies for comparison. TECHNIQUE: Multiple transabdominal and endovaginal sonographic images of the pelvis performed. FINDINGS: The uterus is surgically absent. The right ovary measures 11 x 7 x 6 mm and the left ovary is not visualized. . Normal doppler signal in both ovaries. There is no free fluid in the pelvis. There are no abnormal masses seen on either side. IMPRESSION: 1. Unremarkable pelvic ultrasound status post hysterectomy. Reviewed, dictated and finalized at location A.
== END 2021-11-10 09:36 | disposition home or self-care (01) ==
PROVIDERS: PCP Family Medicine; Visit Provider Nurse Practitioner Gerontology
DX: R10.9 Unspecified abdominal pain (principal)
CPT/HCPCS: 76830; 76856

== ENCOUNTER 2021-11-19 12:23 | Outpatient (CLI) | payer BC, SELFPAY ==
--- NOTE | ~2021-11-19 | CT_ITS ---
EXAMINATION: CT abdomen pelvis wo con DATE: 11/19/2021 14:16 INDICATION: Abdominal pain. TECHNIQUE: Computed tomography (CT) of the abdomen and pelvis was performed without intravenous contr ast. Automated exposure control and iterative reconstruction technique were employed. The dose-length product was 1141.99 mGy-cm. COMPARISON: CT abdomen and pelvis 07/05/2020 FINDINGS: The visualized portions of the lung bases demonstrate minimal atelectasis. A calcified left lung nodule is consistent with old granulomatous disease. No pleural effusion. The heart size is nor mal. No pericardial effusion. There is diffuse hepatic steatosis. There are changes of cholecystectom y. The spleen, pancreas, adrenal glands, and kidneys are normal. There is no urolithiasis. There are no dilated loops of bowel. The appendix is normal. There are no pathologically enlarged lymph nodes. There is no free intraperitoneal fluid. There is severe lumbar spondylosis. IMPRESSION: 1. Diffuse hepatic steatosis. Reviewed, dictated and finalized at location B.
== END 2021-11-19 12:24 | disposition home or self-care (01) ==
PROVIDERS: PCP Family Medicine; Visit Provider Physician Assistant
DX: R10.9 Unspecified abdominal pain (principal); K76.0 Fatty (change of) liver, not elsewhere classified
CPT/HCPCS: 74176

== ENCOUNTER → 2022-04-04 07:28 | Outpatient (CLI) | payer BC, SELFPAY ==
--- NOTE | ~2022-04-04 | XR_ITS ---
XR sacrum coccyx min 2V DATE: 04/04/2022 08:00 INDICATION: Low back pain TECHNIQUE: AP, angled AP and lateral views of sacrum and coccyx COMPARISON: April 04, 2022 lumbar spine FINDINGS: Lumbar degenerative disc disease, most severe at L4-5. Normal alignment at the pubic symphysis and sacroiliac joints. No sacral bone destruction is evident . No fracture of the sacrum coccyx is noted. IMPRESSION: No significant abnormality of the sacrum or coccyx Multilevel lumbar degenerative disc disease Reviewed, dictated and finalized at location A. MONIA DISTILLER
--- NOTE | ~2022-04-04 | XR_ITS ---
XR lumbar spine 2-3V DATE: 04/04/2022 08:00 INDICATION: Low back pain TECHNIQUE: AP, lateral, coned lateral lumbosacral views COMPARISON: None FINDINGS: There is mild lumbar dextroscoliosis. There is osteopenia. Normal alignment of the lumbar spine. No fracture or bone destruction or spondylolisthesis. The inclu ded lower thoracic and lumbar pedicles are intact. Mild degenerative disc disease at L1-2. Moderately severe degenerative disease at L3-4 Severe degenerative disease at L4-5. The sacroiliac joints are intact. Status post cholecystectomy. IMPRESSION: Osteopenia Mild dextroscoliosis Multilevel degenerative disc disease, most severe at L4-5 Reviewed, dictated and finalized at location A. SIT WORKER
== END ==
PROVIDERS: PCP Family Medicine; Visit Provider Nurse Practitioner Gerontology
DX: K62.89 Other specified diseases of anus and rectum (principal); M51.36 Other intervertebral disc degeneration, lumbar region
CPT/HCPCS: 72100; 72220

== ENCOUNTER 2022-05-04 00:59 | Day surgery (SDC) | payer BC, SELFPAY ==
[2022-05-04 07:37] VITALS: BP 124/71; PULSE 79; RESP 18; TEMP 36.6; O2SAT 98
[2022-05-04] MEDS: LACTATED RINGERS 1,000 ML 150 ML IV CONT (07:47)
[2022-05-04 07:54] LABS: Glucose Point of Care 123 mg/dl (65-105)
--- NOTE | 2022-05-04 08:31 | WPDHPUPDATE1 ---
History and Physical Update Update Date/Time: 05/04/22 08:31 History and Physical has been reviewed, including an updated exam of the patient. There are NO changes in the patient's condition. Risks, benefits, and alternatives have been discussed and questions answered. Patient agrees to proceed with procedure. Patient appears to have multiple complaints do not automatically appear connected. Because of complaints of left upper quadrant pain after eating an EGD will be performed today.
--- NOTE | 2022-05-04 08:48 | WPDANESEPPF ---
Anes - Initial Pre Proc Eval Procedure: Operation Date: 05/04/22 09:00 Proposed Procedures p Esophagogastroduodenoscopy - Delfino Velez MD Date/Time: 05/04/22 08:48 Surgeon: Delfino Velez MD Pre Op Diagnosis: nausea, vomiting, LUQP, black stools Patient Data Age: 62 Gender: F Height: 1.78 m Weight: 92.2 kg Last Vital Signs Temp 97.8 F 05/04/22 07:37 Pulse 79 05/04/22 07:37 Resp 18 05/04/22 07:37 BP 124/71 05/04/22 07:37 Pulse Ox 98 05/04/22 07:37 O2 Del Method Room Air 05/04/22 07:37 Allergies Allergy/AdvReac Type Severity Reaction Status Date / Time No Known Allergies Allergy Unknown Verified 05/04/22 07:36 Home Medications Medication Instructions Recorded Confirmed Type buspirone 5 mg tablet See Rx Instructions .Route 08/17/21 04/25/22 Rx .COMPLEX #90 tabs atorvastatin 10 mg tablet 10 mg PO DAILY #90 tabs 01/01/22 04/25/22 Rx pen needle, diabetic 32 gauge x #100 ea 02/21/22 04/13/22 Rx 5/32 (1st Tier Unifine Pentips) blood sugar diagnostic (Accu-Chek #100 ea 03/21/22 04/13/22 Rx Geetha Plus test strips) blood sugar diagnostic (Blood #50 ea 04/04/22 04/13/22 Rx Glucose Test strips) blood-glucose meter #1 ea 04/04/22 04/13/22 Rx blood-glucose meter (Accu-Chek #1 ea 04/04/22 04/13/22 Rx Geetha Plus Meter) empagliflozin 12.5 mg-metformin ER 2 tablet PO DAILY 90 days #180 tabs 04/05/22 04/25/22 Rx 1,000 mg tablet,extended rel 24 hr (Synjardy XR) tirzepatide 5 mg/0.5 mL 5 mg (0.5 mL) subcut WEEKLY 30 04/05/22 04/25/22 Rx subcutaneous pen injector days #2 mL (Mounjaro) meloxicam 15 mg tablet See Rx Instructions .Route 04/11/22 04/25/22 Rx .COMPLEX #90 tabs clonazepam 0.5 mg tablet 0.5 mg PO QHS PRN anxiety #30 tabs 04/12/22 04/25/22 Rx budesonide 3 mg 9 mg PO DAILY 4 weeks #84 ea 04/13/22 04/25/22 Rx capsule,delayed,extended release sucralfate 1 gram tablet (Carafate) 1 g PO Q6H 1 month #120 tabs 04/13/22 04/25/22 Rx pantoprazole 40 mg tablet,delayed 40 mg PO BID 1 month #60 tabs 04/18/22 04/25/22 Rx release lisinopril 10 mg tablet See Rx Instructions .Route 04/28/22 05/04/22 Rx .COMPLEX #90 tabs Laboratory Tests 05/04/22 07:48 POC Capillary Glucose 123 mg/dl H mg/dl (65-105) Patient hx anesthesia problems: none Family hx anesthesia problems: none Results Review: All pre-operative results and documents have been reviewed as part of the pre-operative evaluation. [facility] Past Medical History Medical History (Updated 04/13/22 @ 09:34 by Patricia Ramirez APN-C) Benign essential HTN Calcaneal fracture Cardiac murmur Cervical spondylosis with radiculopathy Chronic insomnia Diarrhea Elevated LFTs ROSALINDA (generalized anxiety disorder) Gallbladder & bile duct stone, acute cholecystitis and obstruction Gastroesophageal reflux disease History of colon polyps Hyperlipidemia IBS (irritable bowel syndrome) Infectious gastroenteritis Left breast lump Long-term insulin use Mesenteric adenitis Nausea & vomiting Postmenopausal Thoracic spondylosis TMJ arthralgia Type 2 diabetes mellitus Vitamin D insufficiency Surgical History Surgical History History of cholecystectomy History of dilation and curettage History of partial hysterectomy Status post right foot surgery ORIF of calcaneal fracture. Family History Family History Sibling Acute myocardial infarction Mother CLL (chronic lymphocytic leukemia) Father Colon cancer Other Diabetes mellitus Family history of alcoholism Family history of arthritis Family history of cardiovascular disease Hypertension Social History Social History Social History: Surrogate decision maker: Kerrie Gomez, daughter. Code status: Full code. Smoking status: Never smoker Second hand
[2022-05-04 09:24] VITALS: BP 129/74; PULSE 77; RESP 20; O2SAT 98
[2022-05-04 09:34] VITALS: BP 141/88; PULSE 74; RESP 38; O2SAT 98
[2022-05-04 09:44] VITALS: BP 155/86; PULSE 67; RESP 22; O2SAT 99
== END 2022-05-04 09:53 | disposition home or self-care (01) ==
PROVIDERS: PCP Family Medicine; Visit Provider Internal Medicine Gastroenterology
PROC: 0DJ08ZZ Inspection of Upper Intestinal Tract, Via Natural or Artificial Opening Endoscopic (ICD-10-PCS; CPT 43235; principal; 2022-05-04 09:00)
DX: R10.12 Left upper quadrant pain (principal); Z79.84 Long term (current) use of oral hypoglycemic drugs; I10 Essential (primary) hypertension; E78.5 Hyperlipidemia, unspecified; E11.9 Type 2 diabetes mellitus without complications; F41.1 Generalized anxiety disorder; K21.9 Gastro-esophageal reflux disease without esophagitis; E66.9 Obesity, unspecified; Z68.29 Body mass index [BMI] 29.0-29.9, adult
CPT/HCPCS: 43239; 82948; 87081; J2704; J7120

== ENCOUNTER 2022-06-20 09:31 | Outpatient (CLI) | payer BC, SELFPAY ==
--- NOTE | ~2022-06-20 | XR_ITS ---
EXAMINATION: XR barium swallow w SBFT DATE: 06/20/2022 12:41 INDICATION: Nausea and vomiting. Bloating. TECHNIQUE: The patient drank thick barium, gas-producing crystals, and thin barium. Fluoroscopy of th e esophagus and small bowel was performed. Fluoroscopy exposure time was 0.4 minutes. Radiographs of the abdomen were obtained. The total number of images was 223. COMPARISON: CT abdomen and pelvis 11/19/2021 FINDINGS: BARIUM ESOPHAGRAM: There is no mass or stricture of the esophagus. Esophageal motility is normal. There is no hiatal her yusuf. There was no gastroesophageal reflux with provocative maneuvers. SMALL BOWEL SERIES: The small bowel shows a normal folding pattern. Specifically, the terminal ileum is normal. Transit t bill to the colon was 2.5 hours. IMPRESSION: 1. Normal esophagram. 2. Normal small bowel series. Reviewed, dictated and finalized at location A.
== END 2022-06-20 09:32 | disposition home or self-care (01) ==
PROVIDERS: PCP Family Medicine Adolescent Medicine; Visit Provider Nurse Practitioner Family
DX: K21.9 Gastro-esophageal reflux disease without esophagitis (principal); R10.9 Unspecified abdominal pain
CPT/HCPCS: 74240

== ENCOUNTER 2022-10-12 15:46 | Emergency (ER) | payer BC, SELFPAY ==
--- NOTE | ~2022-10-12 | CT_ITS ---
EXAMINATION: CT brain wo con DATE: 10/12/2022 20:40 INDICATION: Head injury TECHNIQUE: Computed tomography (CT) of the head was performed without intravenous contrast. Sagittal and coronal reconstructions were performed. The mA was adjusted according to patient size. Iterative reconstruction technique was employed. The dose-length product was 605.33 mGy-cm. COMPARISON: None FINDINGS: No fracture. No acute intracranial hemorrhage, acute infarction or abnormal extra axial fluid collect ion. There is mild scattered white matter hypoattenuation consistent with chronic small vessel ischem ic disease. Symmetric prominence of the sulci consistent with mild age-appropriate diffuse cerebral v olume loss. Ventricles are normal and symmetric. No mass/mass effect. The orbits, paranasal sinuses a nd mastoid air cells are normal. IMPRESSION: 1. No fracture or acute intracranial process. 2. Age-related changes including mild diffuse volume loss and mild scattered white matter hypoattenua tion consistent with chronic small vessel schema disease. Reviewed, dictated and finalized at location A. IMPRESSION: 1. No fracture or acute intracranial process. 2. Age-related changes including mild diffuse volume loss and mild scattered wh ite matter hypoattenuation consistent with chronic small vessel schema disease.
--- NOTE | ~2022-10-12 | XR_ITS ---
EXAMINATION: XR elbow LT min 3V DATE: 10/12/2022 17:26 INDICATION: Left elbow pain post fall TECHNIQUE: Anteroposterior, two oblique and lateral views of the left elbow were obtained. COMPARISON: None. FINDINGS: Alignment is normal. No fracture or joint effusion. Mild osteoarthritis at the ulnotrochlear articula tion. Soft tissues are unremarkable. IMPRESSION: 1. No acute osseous abnormality or left elbow joint effusion. Reviewed, dictated and finalized at location A.
--- NOTE | ~2022-10-12 | XR_ITS ---
EXAMINATION: XR_RIBSLTCXR1_CR DATE: 10/12/2022 17:26 INDICATION: Left rib pain post fall TECHNIQUE: A frontal inspiratory view of the chest and 3 views of the left ribs were obtained. COMPARISON: Chest radiograph dated 07/29/2021 FINDINGS: No rib fractures identified. Couple calcified nodules in the left lung consistent with old granulomat ous disease. No other airspace opacities, pulmonary edema, pleural effusion or pneumothorax. Cardiome diastinal silhouette is normal. Cholecystectomy clips in right upper quadrant. Mild lumbar dextrocurv ature with moderate spondylosis. IMPRESSION: 1. No rib fracture or acute cardiopulmonary disease. Reviewed, dictated and finalized at location A.
--- NOTE | ~2022-10-12 | CT_ITS ---
EXAMINATION: CT cervical spine wo con DATE: 10/12/2022 20:41 INDICATION: Neck pain post trauma with head injury TECHNIQUE: Computed tomography (CT) of the cervical spine was performed without intravenous contrast. Automated exposure control and iterative reconstruction technique were employed. The dose-length pro duct was 299.95 mGy-cm. COMPARISON: None FINDINGS: Mild cervicothoracic dextrocurvature. Straightening of the normal cervical lordosis. Vertebral body h eights are normal. No fracture. Moderate disc height loss at C3-C4 through C7-T1 with posterior disc osteophyte complex at each level resulting in mild to moderate central canal stenosis at C5-C6 and C6 -C7 and mild central canal stenosis at C3-C4 and C4-C5 multilevel bilateral moderate to severe cervic al uncovertebral osteoarthritis. Severe facet osteoarthritis on the left at C2-C3 and C3-C4 and bilat erally at C7-T1. Mild to moderate neural foraminal stenosis. Remaining cervical levels. This contribu viri to moderate neural foraminal stenosis bilaterally at C3-C4 with mild neural foraminal stenosis at the remaining levels. Small amount of atherosclerotic calcific location at the right carotid bulb. C oarse calcification is in the thyroid. Cervical soft tissues are otherwise unremarkable. Visualized a pices of lungs are clear. IMPRESSION: 1. Moderate cervical spondylosis. No acute osseous abnormality. Reviewed, dictated and finalized at location A.
--- NOTE | ~2022-10-12 | XR_ITS ---
EXAMINATION: XR hip LT 2V w AP pelvis DATE: 10/12/2022 17:28 INDICATION: Posterior left hip pain post fall TECHNIQUE: Anteroposterior view of the pelvis and anteroposterior and frog-leg lateral views of the l eft hip were obtained. COMPARISON: 04/04/2022 FINDINGS: Mild lumbar dextrocurvature with moderate to severe spondylosis. Normal alignment in the pelvis. No f racture. Mild bilateral hip osteoarthritis. Moderate bilateral sacral iliac osteoarthritis. Mild oste itis pubis. IMPRESSION: 1. Degenerative skeletal changes in the lumbar spine and to lesser degree in the pelvis. No acute oss eous abnormality. Reviewed, dictated and finalized at location A. IMPRESSION: 1. Degenerative skeletal changes in the lumbar spine and to lesser degree in th e pelvis. No acute osseous abnormality.
[2022-10-12 16:36] VITALS: BP 121/70; PULSE 78; RESP 16; TEMP 36.4; O2SAT 98
--- NOTE | 2022-10-12 19:56 | ED.FALL ---
HPI - Fall General Chief Complaint: Fall Stated Complaint: fall from bus stairs - hit head - no LOC Time Seen by Provider: 10/12/22 18:58 History of Present Illness HPI Narrative: 62-year-old female with history of diabetes, high cholesterol, IBS presented ED for evaluation after having a fall from a bus. Patient states that she missed the last few steps and did strike her head with no loss of conscious. Patient was complaining of right-sided chest wall pain right hip pain and right elbow pain. Patient states she is not on any blood thinners. Related Data Allergies Allergy/AdvReac Type Severity Reaction Status Date / Time No Known Allergies Allergy Unknown Verified 10/12/22 15:47 Review of Systems Review of Systems: All systems reviewed & are unremarkable except as noted in HPI and below PMFSH Past Medical History Medical History (Updated 10/13/22 @ 00:00 by Sarika Molina) Benign essential HTN Calcaneal fracture Cardiac murmur Cervical spondylosis with radiculopathy Diarrhea Elevated LFTs ROSALINDA (generalized anxiety disorder) Gallbladder & bile duct stone, acute cholecystitis and obstruction Gastroesophageal reflux disease History of colon polyps Hyperlipidemia IBS (irritable bowel syndrome) Infectious gastroenteritis Left breast lump Long-term insulin use Mesenteric adenitis Nausea & vomiting Postmenopausal Thoracic spondylosis TMJ arthralgia Type 2 diabetes mellitus Vitamin D insufficiency Surgical History Surgical History (Updated 10/06/22 @ 06:53 by Ricardo Jones MD) History of cholecystectomy History of dilation and curettage History of partial hysterectomy Status post right foot surgery ORIF of calcaneal fracture. Family History Family History Sibling Acute myocardial infarction Mother CLL (chronic lymphocytic leukemia) Father Colon cancer Other Diabetes mellitus Family history of alcoholism Family history of arthritis Family history of cardiovascular disease Hypertension Social History Social History Social History: Surrogate decision maker: Kerrie Gomez, daughter. Code status: Full code. Smoking status: Never smoker Second hand tobacco smoke exposure: No Alcohol intake: never Alcohol use details: rarely Substance use: never Substance use type: does not use Lack of Transportation: No Lack of Food: Never True Current Housing: I Have Housing Concerned About Future Housing: No Difficulty Paying Gas/Electric Bills: No Difficulty Paying for Meds: No Currently Unemployed: No Education: Decline to Answer Difficulty w/ Childcare or Family Care: No Living arrangements: alone Additional living arrangements comments: The patient lives in [place]. Her son is at home with her. She is . 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 Gender identity (if verbalized by the patient): Female Sexual Orientation (if Verbalized by the Patient): Straight or Heterosexual Spiritual care concerns: No Exam Narrative: APPEARANCE: Well appearing, no pain, no distress, well-nourished. HEAD: normocephalic, tenderness behind left ear with no ecchymosis. EYES: PERRLA/EOMI, conjunctivae clear. NOSE: Normal no drainage EARS:TMS clear with good light reflex. THROAT: Pharynx clear, no exudate. NECK: Supple. No adenopathy, no masses. RESPIRATORY: Airway patent, respirations nonlabored. Clear to auscultation bilaterally, no rales, rhonchi, wheezing. CARDIOVASCULAR: Regular rate and rhythm without murmurs rubs or gallops. ABDOMINAL: Soft, nontender, nondistended, normal bowel sounds MUSCULOSKELETAL: Tenderness to right chest wall right elbow and right hip with no decreased range of motion. NEURO: Alert. Cranial nerves II through XII intact. Suman
[2022-10-12] MEDS: CYCLOBENZAPRINE HCL 10 MG TABLET PO (20:06)
[2022-10-12] MEDS: HYDROcodone/acetaminophen (*CRX) 5-325 MG TABLET 1 TAB PO (20:06)
== END 2022-10-12 21:51 | disposition home or self-care (01) ==
PROVIDERS: Emergency Provider Emergency Medicine; PCP Family Medicine Adolescent Medicine
DX: S09.90XA Unspecified injury of head, initial encounter (principal); S59.902A Unspecified injury of left elbow, initial encounter; S79.912A Unspecified injury of left hip, initial encounter; I10 Essential (primary) hypertension; E11.9 Type 2 diabetes mellitus without complications; E78.00 Pure hypercholesterolemia, unspecified; K58.9 Irritable bowel syndrome, unspecified; K21.9 Gastro-esophageal reflux disease without esophagitis; Z86.010 Personal history of colon polyps; Z90.49 Acquired absence of other specified parts of digestive tract; Z90.711 Acquired absence of uterus with remaining cervical stump; Z79.85 Long-term (current) use of injectable non-insulin antidiabetic drugs; M47.812 Spondylosis without myelopathy or radiculopathy, cervical region; V78.4XXA Person boarding or alighting from bus injured in noncollision transport accident, initial encounter
CPT/HCPCS: 70450; 71101; 72125; 73080; 73502; 99284; A9270

== ENCOUNTER 2023-05-25 08:01 | Outpatient (CLI) | payer BC, SELFPAY ==
--- NOTE | ~2023-05-25 | US_ITS ---
EXAMINATION: US abdomen limited DATE: 05/25/2023 08:17 INDICATION: Right upper quadrant abdominal pain. Abnormal liver function tests. TECHNIQUE: Multiple grayscale and Doppler ultrasound images of the abdomen were obtained. COMPARISON: None FINDINGS: Abdominal aorta is normal in caliber. The visualized portions of the head and body of the p ancreas are normal. The liver is normal without focal lesion. No liver surface nodularity. There is n ormal flow in main portal vein. The gallbladder is absent. The common duct is normal and measures 4 m m. IMPRESSION: 1. Normal right upper quadrant ultrasound status post cholecystectomy. Reviewed, dictated and finalized at location A.
--- NOTE | ~2023-05-25 | MMUS_ITS ---
EXAMINATION: MM diagnostic nba BI w barney, US breast LT limited HISTORY: Palpable left breast lump TECHNIQUE: Additional 3-D tomosynthesis images of the breasts were performed and synthetic 2-D images were generated. CAD analysis was submitted and interpreted. High resolution Limited left breast ultr asound was performed. COMPARISON: 08/10/2021 BREAST PARENCHYMAL COMPOSITION: Not dense: There are scattered areas of fibroglandular density. FINDINGS: MAMMOGRAPHIC FINDINGS: The breasts are stable. No new masses, calcifications or architectural distortion to suggest malignan cy. ULTRASOUND: Limited left breast ultrasound: At 9-10:00 in the area of palpable concern, 13 cm from the nipple the re is an oval circumscribed parallel oriented hypoechoic mass located superficially measuring 1.6 x 1 .5 x 0.4 cm. IMPRESSION: 1. New left breast mass located at 9-10:00, 13 cm from the nipple, corresponding to the palpable abno rmality. 2. Ultrasound-guided left breast biopsy recommended. BI-RADS category 4, suspicious findings. Reviewed, dictated and finalized at location A. IMPRESSION: 1. New left breast mass located at 9-10:00, 13 cm from the nipple, correspondin g to the palpable abnormality. 2. Ultrasound-guided left breast biopsy recommended. BI-RADS category 4, suspicious findings.
== END 2023-05-25 08:02 ==
LOC: MICIMG 08:02
PROVIDERS: PCP Nurse Practitioner Family; Visit Provider Nurse Practitioner Family
DX: N63.20 Unspecified lump in the left breast, unspecified quadrant (principal); K76.0 Fatty (change of) liver, not elsewhere classified; R10.11 Right upper quadrant pain; R92.8 Other abnormal and inconclusive findings on diagnostic imaging of breast
CPT/HCPCS: 76642; 76705; 77062; 77066; G0279

== ENCOUNTER 2023-07-25 01:00 | Day surgery (SDC) | payer BC, SELFPAY ==
--- NOTE | 2023-07-12 13:59 | PC.NURSE ---
Report to the Outpatient Waiting Room, entrance under the green pavilion located off [facility], at time __0915AM on date ___07/25/23____. Planned Procedure Time: _1115 . Time changes happen often and if your time is changed the preop area will call you the afternoon before. - You and your visitor will be asked to self-screen and do not enter if you have any COVID symptoms. - A mask is optional within the hospital at this time. NOTHING TO EAT OR DRINK 8 HOURS PRIOR TO SURGERY PER DR GAO Take the following medications with a SIP of water the morning of surgery: _BUSPIRONE DO NOT STOP ANY OF YOUR OTHER PRESCRIPTION MEDICATIONS PRIOR TO SURGERY ?EXCEPT THE FOLLOWING Medications to discontinue per physician ___HOLD ASPIRIN PER DR GAO Please no make-up, nail czech, hairspray, perfume, deodorant, or body powder the day of surgery. No jewelry (including any body piercings) or valuables the day of surgery, leave them at home. Please take a shower or bath the night before, or the morning of, surgery with an antibacterial soap. Wear comfortable, loose fitting clothing. Children are encouraged to wear pajamas. - Jewelry must be removed prior to entering the operating room. Rings and piercings that are not removed may be cut off. - The hospital will not accept responsibility for valuables. - Please leave all valuables, including medications, at home the day of surgery. If you are going home after surgery, a licensed public transit trolley driver must drive you home. - NO public transportation without another adult if you receive anesthesia. - We recommend that an adult stay with you for 24 hours following discharge. - We also recommend that you do not drive, make important decision, drink alcoholic beverages, or take any drugs that were not prescribed by your health care provider for at least 24 hours after your discharge time. Follow any additional instructions given to you from your surgeon. If you or anyone in your household have experienced Covid symptoms in the past week, please notify your surgeon or the nurse liaison at the phone number below for possible testing. Telephone instructions given to ___PT and asked if any additional questions and then verbalized understanding. Patient advised to call surgeon office or pre surgery nurse liaison [phone] if any additional questions.
[2023-07-12 14:18] VITALS: BMI 24.7
--- NOTE | 2023-07-25 07:14 | PM.HPGS ---
History of Present Illness History of Present Illness Chief complaint: ganglion right thumb Narrative: Patient seen and examined in pre-operative holding area. No interval change in medical history or symptoms. Patient recalls previous discussion of benefits and alternatives to procedure. Continues to desire to proceed with right thumb mucous cyst excision . Reviewed procedure, post-op expectations and risks including but not limited to bleeding, infection, injury to tendon/nerve/vessel, decreased hand function, stiffness, RSD, no change or worsening of symptoms, recurrence. I discussed the possible use of assistants and their participation in the case. Patient stated understanding and signed the consent form wishing to proceed. Review of Systems Review of Systems: All systems reviewed & are unremarkable except as noted in HPI and below PMFSH Past Medical History Medical History Benign essential HTN Calcaneal fracture Cardiac murmur Cervical spondylosis with radiculopathy Diarrhea Elevated LFTs ROSALINDA (generalized anxiety disorder) Gallbladder & bile duct stone, acute cholecystitis and obstruction Gastroesophageal reflux disease History of colon polyps Hyperlipidemia IBS (irritable bowel syndrome) Infectious gastroenteritis Left breast lump Long-term insulin use Mesenteric adenitis Nausea & vomiting Postmenopausal Thoracic spondylosis TMJ arthralgia Type 2 diabetes mellitus Vitamin D insufficiency Surgical History Surgical History History of cholecystectomy History of dilation and curettage History of partial hysterectomy Status post right foot surgery ORIF of calcaneal fracture. Family History Family History Sibling Acute myocardial infarction Mother CLL (chronic lymphocytic leukemia) Father Colon cancer Other Diabetes mellitus Family history of alcoholism Family history of arthritis Family history of cardiovascular disease Hypertension Social History Social History (Updated 05/21/23 @ 08:12 by Maryam Fontenot MA) Social History: Surrogate decision maker: Kerrie Gomez, daughter. Code status: Full code. Smoking status: Never smoker Second hand tobacco smoke exposure: No Alcohol intake: never Alcohol use details: rarely Substance use: never Substance use type: does not use Do You Feel Safe in your Home?: Yes Lack of Transportation: No Lack of Food: Never True Current Housing: I Have Housing Concerned About Future Housing: No Difficulty Paying Gas/Electric Bills: No Difficulty Paying for Meds: No Currently Unemployed: No Education: Grade School Difficulty w/ Childcare or Family Care: No Living arrangements: alone Additional living arrangements comments: The patient lives in [place]. Her son is at home with her. She is . 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 Gender identity (if verbalized by the patient): Female Sexual Orientation (if Verbalized by the Patient): Straight or Heterosexual Spiritual care concerns: No Meds Home Medications and Allergies Home Medications Medication Instructions Recorded Confirmed Type pen needle, diabetic 32 gauge x #100 ea 02/21/22 04/24/23 Rx (1st Tier Unifine Pentips) blood sugar diagnostic (Accu-Chek #100 ea 03/21/22 04/24/23 Rx Geetha Plus test strips) blood sugar diagnostic (Blood #50 ea 04/04/22 04/24/23 Rx Glucose Test strips) blood-glucose meter #1 ea 04/04/22 04/24/23 Rx blood-glucose meter (Accu-Chek #1 ea 04/04/22 04/24/23 Rx Geetha Plus Meter) atorvastatin 10 mg tablet See Rx Instructions .Route 10/09/22 07/12/23 Rx .COMPLEX #90 tabs lisinopril 10 mg tablet See Rx Instructions .Route 04/15/23 07/12/23 Rx
--- NOTE | 2023-07-25 07:14 | W.PM.PROC2 ---
Procedure Note - Detailed Date of Procedure 07/25/23 Pre-op Diagnosis right thumb mucous cyst Post-op Diagnosis Same Procedure Performed exicsion right thumb mucous cyst Surgeon Stas Gómez MD Data Lead [facility] Anesthesia MAC Description of Procedure INFORMED CONSENT: The patient was seen and examined and marked in the pre-op area.? The patient signed the consent form. PROCEDURE IN DETAIL:The patient taken back to OR on the stretcher in supine position. Time out performed with anesthesia, surgeon and staff agreeing on patient's name site and surgery to be performed SCDs were placed on the lower extremities and inflated. A tourniquet was placed on {right} upper extremity and antibiotics given IV After anesthesia administered sedation I injected {3}cc 1%lido and 0.5% marcaine plain at the operative site The?{right upper extremit}?was prepped and draped in sterile fashion the??{right upper extremity} was? exsanguinated with Esmarch bandage and tourniquet inflated to 250mmHg I proceeded with making an elliptical incision around the affected skin overlying the right thumb mass through skin and dermis with a 15 blade scalpel. Littler scissor and 15 blade were used for dissection around cyst down to dipj where it was transected with bipolar cautery. I irrigated with normal saline. I used 5-0 vicryl to repair the capsular defect. Even with wide undermining I wasn't able to close the skin defect primarily. I made a larger back cut proximally and distally to create a small rotation advancement flap that was rotated distally and closed with 4-0 chromic. A dressing of xeroform, 4x4, and tube gauze was applied after the tourniquet was let down noting the hand was warm and well perfused. The patient was then awaken from anesthesia and transferred to the recovery room in stable condition.? Complications - none EBL- 0cc Disposition - home in stable conditions destiny reyes pa-c was essential for positioning, retraction, closure and dressing placement [facility] [place] Billing Surgery - Charge Forward: Surgery Billing ([id number] same for destiny adding modifier )
[2023-07-25 09:40] VITALS: BP 140/74; PULSE 63; RESP 16; TEMP 36.5; O2SAT 100
[2023-07-25 09:43] LABS: Glucose Point of Care 81 mg/dl (65-105)
[2023-07-25] MEDS: LACTATED RINGERS 1,000 ML 30 ML IV CONT (10:00)
--- NOTE | 2023-07-25 10:08 | WPDANESEPPF ---
Anes - Initial Pre Proc Eval Procedure: Operation Date: 07/25/23 12:00 Proposed Procedures p Excision Right Thumb Mucous Cyst - Stas Gómez MD Date/Time: 07/25/23 10:08 Surgeon: Stas Gómez MD Pre Op Diagnosis: ganglion right thumb Patient Data Age: 63 Gender: F Height: 1.78 m Weight: 78.05 kg Allergies Allergy/AdvReac Type Severity Reaction Status Date / Time No Known Allergies Allergy Unknown Verified 07/12/23 13:48 Home Medications Medication Instructions Recorded Confirmed Type pen needle, diabetic 32 gauge x #100 ea 02/21/22 04/24/23 Rx 5/32 (1st Tier Unifine Pentips) blood sugar diagnostic (Accu-Chek #100 ea 03/21/22 04/24/23 Rx Geetha Plus test strips) blood sugar diagnostic (Blood #50 ea 04/04/22 04/24/23 Rx Glucose Test strips) blood-glucose meter #1 ea 04/04/22 04/24/23 Rx blood-glucose meter (Accu-Chek #1 ea 04/04/22 04/24/23 Rx Geetha Plus Meter) atorvastatin 10 mg tablet See Rx Instructions .Route 10/09/22 07/12/23 Rx .COMPLEX #90 tabs lisinopril 10 mg tablet See Rx Instructions .Route 04/15/23 07/12/23 Rx .COMPLEX #180 tabs ondansetron HCl 8 mg tablet 8 mg PO Q8H PRN nausea and 04/19/23 07/12/23 Rx vomiting #30 tabs empagliflozin 12.5 mg-metformin ER 2 tablet PO DAILY #180 tabs 06/11/23 07/12/23 Rx 1,000 mg tablet,extended rel 24 hr (Synjardy XR) buspirone 5 mg tablet 5 mg PO DAILY #90 tabs 06/19/23 07/12/23 Rx pantoprazole 40 mg tablet,delayed 40 mg PO DAILY #90 tabs 06/25/23 07/12/23 Rx release clonazepam 0.5 mg tablet 0.5 mg PO QHS PRN anxiety #30 tabs 07/09/23 07/12/23 Rx aspirin 81 mg tablet,delayed 81 mg PO DAILY 07/12/23 07/12/23 History release (Adult Low Dose Aspirin) linaclotide 290 mcg capsule 290 mcg PO DAILY 07/12/23 07/12/23 History (Linzess) tirzepatide 5 mg/0.5 mL 5 mg (0.5 mL) subcut WEEKLY #2 mL 07/17/23 Rx subcutaneous pen injector (Mounjaro) tramadol 50 mg tablet 50 mg PO Q6H PRN pain #12 tabs 07/25/23 Rx Laboratory Tests 07/25/23 09:37 POC Capillary Glucose 81 mg/dl (65-105) Patient hx anesthesia problems: none Family hx anesthesia problems: none Results Review: All pre-operative results and documents have been reviewed as part of the pre-operative evaluation. [facility] Past Medical History Medical History Benign essential HTN Calcaneal fracture Cardiac murmur Cervical spondylosis with radiculopathy Diarrhea Elevated LFTs ROSALINDA (generalized anxiety disorder) Gallbladder & bile duct stone, acute cholecystitis and obstruction Gastroesophageal reflux disease History of colon polyps Hyperlipidemia IBS (irritable bowel syndrome) Infectious gastroenteritis Left breast lump Long-term insulin use Mesenteric adenitis Nausea & vomiting Postmenopausal Thoracic spondylosis TMJ arthralgia Type 2 diabetes mellitus Vitamin D insufficiency Surgical History Surgical History History of cholecystectomy History of dilation and curettage History of partial hysterectomy Status post right foot surgery ORIF of calcaneal fracture. Family History Family History Sibling Acute myocardial infarction Mother CLL (chronic lymphocytic leukemia) Father Colon cancer Other Diabetes mellitus Family history of alcoholism Family history of arthritis Family history of cardiovascular disease Hypertension Social History Social History Social History: Surrogate decision maker: Kerrie Gomez, daughter. Code status: Full code. Smoking status: Never smoker Second hand tobacco smoke exposure: No Alcohol intake: never Alcohol use details: rarely Substance use: never Substance use type: does not use Do You Feel Safe in your Home?: Yes Lack of Transp
[2023-07-25] MEDS: ceFAZolin 2 GM/D5W 50 ML 2 GM/50 ML BAG IVPB (10:20)
[2023-07-25] MEDS: LIDOCAINE HCL 1% LOCAL INJ 10 ML VIAL INFILTRATE (10:33)
[2023-07-25 10:36] VITALS: BMI 25.0
[2023-07-25 10:44] VITALS: BP 121/64; PULSE 78; RESP 12; O2SAT 96
[2023-07-25 11:15] VITALS: BP 121/64; PULSE 78; RESP 16
[2023-07-25 11:43] VITALS: BP 147/71; PULSE 61; RESP 16
== END 2023-07-25 11:46 | disposition home or self-care (01) ==
PROVIDERS: PCP Nurse Practitioner Family; Visit Provider Plastic Surgery
PROC: (CPT 26160; principal; 2023-07-25 12:00)
DX: M67.441 Ganglion, right hand (principal); L57.0 Actinic keratosis; I10 Essential (primary) hypertension; F41.1 Generalized anxiety disorder; E78.5 Hyperlipidemia, unspecified; E11.9 Type 2 diabetes mellitus without complications; E55.9 Vitamin D deficiency, unspecified; K21.9 Gastro-esophageal reflux disease without esophagitis; Z79.84 Long term (current) use of oral hypoglycemic drugs; Z79.82 Long term (current) use of aspirin
CPT/HCPCS: 26160; 82948; 88305; A9270; J0690; J2405; J2704; J3010; J7120

== ENCOUNTER 2023-07-25 07:41 | Outpatient (CLI) | payer BC, SELFPAY ==
--- NOTE | ~2023-07-25 | US_ITS ---
US breast LT limited 07/25/2023 09:19 Indication: Mass identified on recent examination. Biopsy requested. Procedure: High-resolution Limited ultrasound of the left breast. Dr. Corral personally present during the examination. Comparison: Ultrasound dated 05/25/2023 Findings: At 9-10:00 position of the left breast 13 cm from the nipple there is a superficial oval pa rallel oriented hypoechoic mass which appears encapsulated. There are horizontal linear striations wi thout internal vascularity or posterior features. This mass measures approximately 1.6 x 0.4 cm. The sonographic characteristics are compatible with lipoma. Review of prior mammograms reveals no discret e mass in the area of palpable concern on prior examination. Impression: 1: Probable benign lipoma of the left breast at 9-10:00. Biopsy canceled. Recommend short-term follow -up ultrasound in 6 months to assess stability. Findings communicated to the patient at the time of t he examination. BI-RADS CATEGORY 3-PROBABLY BENIGN FINDING RECOMMENDATION: 6 month follow-up Limited left breast ultrasound recommended. Reviewed, dictated and finalized at location B. Impression: 1: Probable benign lipoma of the left breast at 9-10:00. Biopsy canceled. Recom mend short-term follow-up ultrasound in 6 months to assess stability. Findings communicated to the patient at the time of the examination. BI-RADS CATEGORY 3-PROBABLY BENIGN FINDING RECOMMENDATION: 6 month follow-up Limited left breast ultrasound recommended.
== END 2023-07-25 07:42 | disposition home or self-care (01) ==
LOC: ANHIMG 07:42
PROVIDERS: PCP Nurse Practitioner Family; Visit Provider Nurse Practitioner Family
DX: N63.20 Unspecified lump in the left breast, unspecified quadrant (principal); R92.8 Other abnormal and inconclusive findings on diagnostic imaging of breast
CPT/HCPCS: 76642

== ENCOUNTER 2024-05-15 07:53 | Outpatient (CLI) | payer BC, SELFPAY ==
--- NOTE | 2024-05-15 08:06 | ECG_ITS ---
Test Date: 2024-05-15 08:15:42 Measurements Intervals [place] Rate: 57 P: 33 TX: 150 QRS: 36 QRSD: 91 T: 49 QT: 420 QTc: 410 Interpretive Statements SINUS BRADYCARDIA No previous ECG available for comparison Electronically Signed On 05-15-2024 11:46:50 CDT by Haroon Medina M.D.
--- OUTSIDE RECORDS SUMMARY | 2024-05-15 08:09 | XMS_ITS | Continuity of Care Document ---
Author Organization [facility] Address [id number] [place] [address] [place] [address] Phone Care Team Providers Care Shift Stacker Name Role Phone Lavell Phan DO Unavailable Unavailable Advance Directives Directive Yes / No Effective Date File Name No Information Encounters Encounter Description Practice Location Reason(s) For Visit Diagnoses Date Provider Providers Copied on Encounter [facility], [id number] [place] [address] [address], [place], [place], [id number], tel:[phone] [facility] [place] No Information Sylvester Estes. [address] [place], [address], [place]. tel: [phone] Family History Family Member Type Diagnosis Age At Onset No Information Payers Payer name Insurance type Covered democrat ID Authoriza tion(s) No Information Social History Type Description Quantity Date Captured Comments Sex Female Smoking Status No Information Chief Complaint And Reason For Visit No Information Reason For Referral Reason For Referral No Information History Of Present Illness Encounter Date Complaint History Of Prese nt Illness No Information Functional Status Date Functional Assessmen t No Information Instructions Date Instruction Additional Infor mation No Information Assessments Type Assessment Date No Information Patient Care Teams Name Effective Dates (start - stop) Status Members No Information
--- OUTSIDE RECORDS SUMMARY | 2024-05-15 08:09 | XMS_ITS | Clinical Summary ---
Author Organization [facility] Address [address] [place] [address] Care Team Providers Care Peer Support Specialist Name Role Phone Ricardo Jones MD Primary Care Provider + Source Comments [facility],non-owned Affiliates and Associated Physician Practices is amultiple site organization consisting of ambulatory clinics and hospital sitesin [place], [place], [place] and [place]. This disclosure is being madepursuant to the Care Everywhere program and may not contain all information available regarding this patient. Last updated 17.[facility] Enertiv Social History Tobacco Use Types Packs/Day Years Used Date Smoking Tobacco: Never Assessed Sex and Gender Information Value Date Recorded Sex Assigned at Not on file Gender Identity Not on file Sexual Orientation Not on file Plan of Treatment Health Maintenance Due Date Last Done Comments BONE DENSITY TESTING 1960 COLOGUARD (AGES 45-75) - COL ON CA SCREENING 1958 COLON MONITORING 1958 COLONOSCOPY - COLON CA SCREENING 1958 CT COLONOGRAPHY - COLON CA SCREENING 1960 Colorectal Cancer Screening 1958 FIT - COLON CA SCREENING 1958 FLEX SIG - COLON CA SCREENING 1958 LIPID TESTING 1958 MAMMOGRAM 1958 HEPATITIS C SCREENING 04/12/1976 DTAP/TDAP/TD VACCINES (1 - Tdap) 1977 PNEUMOCOCCAL VACCINE 50+ (1 of 1 - PCV) 2008 ZOSTER VACCINE (1 of 2) 2008 COVID-19 VACCINE (2023-2 5 season) 2023 INFLUENZA VACCINE (#1) 2023 DEPRESSION SCREENING 02/20/2024 Respiratory Syncytial Virus (RSV) Vaccine Pt: or over 60 yrs (1 - 1-dose 75+ series) 2033 HEPATITIS B VACCINE Aged Out No longe r eligible based on patient's age to complete this topic HIB VACCINE Aged Out No longer eligi ble based on patient's age to complete this topic HPV VACCINE Aged Out No longer eligi ble based on patient's age to complete this topic MENINGOCOCCAL (Group B) VACC INE SHARED DECISION-MAKING Aged Out No longer eligibl e based on patient's age to complete this topic MENINGOCOCCAL GROUPS A/C/Y/W VACCINE Aged Out No longer eligible b ased on patient's age to complete this topic Care Teams Peer Support Specialist Relationship Specialty Start Date End Date Ricardo Jones MD [address] [facility] [address] [place] [address] PCP - General 02/05/18
--- OUTSIDE RECORDS SUMMARY | 2024-05-15 08:09 | XMS_ITS | Referral Summary ---
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
--- OUTSIDE RECORDS SUMMARY | 2024-05-15 08:09 | XMS_ITS | Encounter Summary ---
Author Organization [facility] Address [address] [place] [address] Care Team Providers Care Claims Adjuster Name Role Phone Ricardo Jones MD Primary Care Provider + Encounter Details Date Type Department Care Team (Late st Contact Info) Description 08/16/2020 Lab Requisition [facility] [address] [place] [id number] Alfred Coronado MD [address] [facility] [place] [address] Social History Tobacco Use Types Packs/Day Years Used Date Smoking Tobacco: Never Assessed Sex and Gender Information Value Date Recorded Sex Assigned at Not on file Gender Identity Not on file Sexual Orientation Not on file documented as of this encounter Plan of Treatment Not on file documented as of this encounter Procedures Procedure Name Priority Date/Time Associated Diagnosis Comments DERMATOPATHOLOGY Routine 08/12/2020 12:0 0 AM CDT documented in this encounter Results * DERMATOPATHOLOGY (08/12/2020 12:00 AM CDT) Case Report Dermatopathology Report Case: [id number] Authorizing Provider: Alfred Coronado MD Collected: 08/12/2020 12:00 AM Ordering Location: [facility] Received: 08/16/2020 06:05 AM Pathologist: Reuben Camacho MD Specimen: Skin, left neck 4:46 PM CDT DERMATOPATHOLOGY LABORATORY Final Diagnosis Specimen A. SKIN, left neck: NEUROFIBROMA (D36.10) 4:46 PM CDT DERMATOPATHOLOGY LABORATORY Clinical History Nevus vs BCC. Path# [id number]. 4:46 PM CDT DERMATOPATHOLOGY LABORATORY Gross Description Specimen A: Received is one formalin filled container labeled with the patient's name and designated left neck. The specimen consists of a shave biopsy measuring [id number]. Jar 0. 4:46 PM CDT DERMATOPATHOLOGY LABORATORY Microscopic Description Specimen A. SKIN, left neck: Sections show a proliferation of spindled and S-shaped cells within the dermis. The stromal collagen is delicate and pale. 4:46 PM CDT DERMATOPATHOLOGY LABORATORY Disclaimer An external and internal positive and negative controls are appropriate for the histochemical, immunohistochemical and immunofluorescence stain(s) in this case (if any), except where stated explicitly. The performance characteristics of the stain(s) cited in this report were developed and its performance characteristic determined by the Dermatopathology Laboratory at [facility], directed by Dr. Jose Alfredo Camacho. These tests need not be, and therefore are not, approved by the [place] Food and Drug Administration. The tests are used for clinical purposes. Billing Codes Specimen Charges Stain Charges 85153 1 4:46 PM CDT DERMATOPATHOLOGY LABORATORY Embedded Images 4:46 PM CDT DERMATOPATHOLOGY LABORATORY Pathology/Cytolog y TISSUE SPECIMEN FROM SKIN / Unknown 08/12/2020 08/16/2020 6:05 AM CDT Alfred Coronado MD LAB - PATHOLOGY/CYTO LOGY ORDERABLES DERMATOPATHOLOGY LABORATORY [facility] - Department of Dermatology [address], [address] [phone] documented in this encounter Visit Diagnoses Not on filedocumented in this encounter Care Teams Claims Adjuster Relationship Specialty Start Date End Date Ricardo Jones MD [address] [address] PCP - General 02/05/18 documented as of this encounter
--- OUTSIDE RECORDS SUMMARY | 2024-05-15 08:09 | XMS_ITS | Clinical Summary ---
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 Gender Identity Not on file Sexual Orientation Not on file Plan of Treatment Health Maintenance Due Date Last Done Comments Breast Cancer Screening-Mammogram 1958 Colon Cancer Screening-Colonoscopy 1958 Depression Screening 1958 Fall Risk Assessment 1958 Hepatitis C Screening 1958 Osteoporosis Screening-Bone Density Scan 1958 DTaP/Tdap/Td Vaccine (1 - Tdap) 1969 Hepatitis B Screening 1976 Pneumococcal vaccine 65+ (1 of 1 - PCV) 2008 Zoster Vaccine (1 of 2) 2008 Well Visit 65+ 2023 Covid-19 Vaccine (6 - 2023-2 5 season) 2023 02/08/2023, 02/14/2022, 04/15/2021, Additional history exists Influenza Vaccine (#1) [id number] [place] [id number] Care Teams Cooking Show Host Relationship Specialty Start Date End Date Smita Leung MD [address] [facility] [address] [place] [address] PCP - General Family Medicine 07/27/20
[2024-05-15 08:33] LABS: Anion Gap 9 mmol/L (4-12); Blood Urea Nitrogen 19 mg/dL (7-17); Calcium 9.6 mg/dL (8.4-10.2); Carbon Dioxide 27 mmol/L (22-30); Chloride 105 mmol/L (98-107); Estimated Glomerular Filt Rate > 60; Glucose 143 mg/dL (65-110); Potassium 4.4 mmol/L (3.4-5.0); Sodium 141 mmol/L (137-145)
== END 2024-05-15 07:54 | disposition home or self-care (01) ==
LOC: ANHSURGERY 08:02
PROVIDERS: Anesthesiology; PCP Family Medicine Adolescent Medicine; Visit Provider Urology
DX: Z01.818 Encounter for other preprocedural examination (principal); E78.5 Hyperlipidemia, unspecified; E11.9 Type 2 diabetes mellitus without complications; I10 Essential (primary) hypertension; R00.1 Bradycardia, unspecified
CPT/HCPCS: 36415; 80048; 93005

== ENCOUNTER 2024-05-23 00:25 | Day surgery (SDC) | payer BC, SELFPAY ==
[2024-05-12 13:47] VITALS: BMI 29.7
--- NOTE | 2024-05-12 13:56 | PC.NURSE ---
Addendum entered by Mel Mclaughlin RN 05/12/24 14:02: Aspirin hold is from Dr Mccollum, pt aware JRRN Original Note: Report to the Outpatient Waiting Room, entrance under the green pavilion located off [facility], at time _0900am on date __05/23/24 . Planned Procedure Time: _1100am .? Time changes happen often and if your time is changed the preop area will call you the afternoon before. - You and your visitor will be asked to self-screen and do not enter if you have any COVID symptoms. Please call surgeon if you need to reschedule. - A mask is optional within the hospital at this time. Patients may have clear liquids (water, carbonated beverages, clear teas, apple juice) until 3 hours prior to surgery with a maximum of 20 ounces. - No food from midnight until time of surgery and no smoking, or chewing tobacco (or any form of nicotine). No chewing gum, candy or mints.(0800am) Take only the following medications with a SIP of water on the morning of surgery: Busprione DO NOT STOP ANY OF YOUR OTHER PRESCRIPTION MEDICATIONS PRIOR TO SURGERY EXCEPT THE FOLLOWING Hold all vitamins and supplements for 3 days per anesthesiologist. Medications to discontinue per physician Aspirin for 7 days prior to surgery Date to take last dose___05/14/24 Please no make-up, nail turkish, hairspray, perfume, deodorant, or body powder the day of surgery.? No jewelry (including any body piercings) or valuables the day of surgery, leave them at home.? Please take a shower or bath the night before, or the morning of, surgery with an antibacterial soap.? Wear comfortable, loose fitting clothing. - Jewelry must be removed prior to entering the operating room.? Rings and piercings that are not removed may be cut off. - The hospital will not accept responsibility for valuables.? - Please leave all valuables, including medications, at home the day of surgery. If you are going home after surgery, a licensed ems driver must drive you home.? - NO public transportation without another adult if you receive anesthesia. - We recommend that an adult stay with you for 24 hours following discharge. - We also recommend that you do not drive, make important decision, drink alcoholic beverages, or take any drugs that were not prescribed by your health care provider for at least 24 hours after your discharge time. Follow any additional instructions given to you from your surgeon. Telephone instructions given to _patient and asked if any additional questions and then verbalized understanding. Patient advised to call surgeon office or pre surgery nurse liaison [phone] if any additional questions.
--- NOTE | 2024-05-18 14:45 | PM.IMHP ---
H&P: HPI History of Present Illness Date/Time: 05/18/24 14:45 Chief Complaint: POP Narrative: Note:?Priscila Hinson is a 64-year-old female who presents for a follow-up visit regarding her pelvic organ prolapse. She reports experiencing a bulge in the vaginal area for approximately three months. She has a history of hysterectomy. She denies any urinary leakage when coughing or sneezing but does report experiencing urgency, particularly recently. She denies any blood in the urine or urinary tract infections. She is not currently sexually active. A cystoscopy was completed to evaluate for underlying bladder pathology as a possible cause for voiding symptoms. She is interested in a surgical procedure for her pelvic organ prolapse she notes pressure and heaviness in some groin pain as well Review of Systems Review of Systems: All systems reviewed & are unremarkable except as noted in HPI and below PMFSH Past Medical History Medical History Nausea & vomiting Diarrhea Long-term insulin use Type 2 diabetes mellitus Cervical spondylosis with radiculopathy Thoracic spondylosis Left breast lump ROSALINDA (generalized anxiety disorder) TMJ arthralgia Cardiac murmur Infectious gastroenteritis Mesenteric adenitis IBS (irritable bowel syndrome) Elevated LFTs History of colon polyps Gastroesophageal reflux disease Postmenopausal Vitamin D insufficiency Hyperlipidemia Benign essential HTN Calcaneal fracture Gallbladder & bile duct stone, acute cholecystitis and obstruction Surgical History Surgical History History of dilation and curettage Status post right foot surgery ORIF of calcaneal fracture. History of cholecystectomy History of partial hysterectomy Family History Family History Sibling Acute myocardial infarction Mother CLL (chronic lymphocytic leukemia) Father Colon cancer Other Diabetes mellitus Family history of alcoholism Family history of arthritis Family history of cardiovascular disease Hypertension Social History Social History Social History: Surrogate decision maker: Kerrie Gomez, daughter. Code status: Full code. Smoking status: Never smoker Second hand tobacco smoke exposure: No Alcohol intake: never Alcohol use details: rarely Substance use: never Substance use type: does not use Do You Feel Safe in your Home?: Yes Lack of Transportation: No Lack of Food: Never True Current Housing: I Have Housing Concerned About Future Housing: No Difficulty Paying Gas/Electric Bills: No Difficulty Paying for Meds: No Currently Unemployed: No Education: Grade School Difficulty w/ Childcare or Family Care: No Living arrangements: with family Additional living arrangements comments: Son Occupation/Education: occupation 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 Gender identity (if verbalized by the patient): Female Sexual Orientation (if Verbalized by the Patient): Straight or Heterosexual Spiritual care concerns: No Meds Home Medications and Allergies Home Medications ?Medication ?Instructions ?Recorded ?Confirmed ?Type pen needle, diabetic 32 gauge x #100 ea 02/21/22 05/12/24 Rx /32 (1st Tier Unifine Pentips) blood sugar diagnostic (Accu-Chek #100 ea 03/21/22 05/12/24 Rx Geetha Plus test strips) blood sugar diagnostic (Blood #50 ea 04/04/22 05/12/24 Rx Glucose Test strips) blood-glucose meter #1 ea 04/04/22 05/12/24 Rx blood-glucose meter (Accu-Chek #1 ea 04/04/22 05/12/24 Rx Geetha Plus Meter) empagliflozin 12.5 mg-metformin ER 2 tablet PO DAILY #180 tabs 06/11/23 05/12/24 Rx 1,000 mg tablet,extended rel 24 hr (Synjardy XR) pantoprazole 40 mg tablet,delayed 40 mg PO DAILY #90 tabs 06/25/23 05/12/24 Rx release aspirin 81 mg tablet,delayed 81 mg PO DAILY 07/12/23 05/12/24 History release (Adult Low Dose Aspirin) linaclotide 290 mcg capsule See Rx Instructions .Route 09/12/23 05/12/24 Rx (Linzess) .COMPLEX #90 caps atorvastatin 10 mg tablet See Rx Instructions .Route 10/07/23 05/12/24 Rx .COMPLEX #90 tabs buspirone 5 mg tablet 5 mg PO DAILY #90 tabs 12/04/23 05/12/24 Rx lisinopril 10 mg tablet 10 mg PO DAILY 05/12/24 05/12/24 History Allergies Allergy/AdvReac Type Severity Reaction Status Date / Time No Known Allergies Allergy Unknown Verified 05/12/24 13:43 Vital Signs The physical exam findings are as follows: Note:? - No urethral mobility - Cystocele to the introitus with good apical support - No significant rectocele - Atrophic vaginal tissues Assessment and Plan Assessment and plan (1) Cystocele: Status: Acute Assessment and Plan: PLAN: - The treatment options for pelvic organ prolapse were reviewed, which included observation, pelvic floor muscle exercises, physical therapy, pessary use, and surgical intervention, each with their specific risks and benefits. - The patient opted for surgical repair via a vaginal approach. Specifically, we discussed a napaimute tissue plication repair, along with any necessary vaginal repairs deemed essential during the procedure. - She was informed of the risks involved, including bleeding, infection, recurrence of prolapse, damage to the bowel or urinary tract, formation of fistulas, nerve or vascular injury, onset of urinary urgency, urinary retention, postoperative stress urinary incontinence, and dyspareunia. She also received written materials that explain the causes and treatments of pelvic organ prolapse. - After a comprehensive discussion of her options, she gave her consent to proceed with the surgery. Understands prolapse surgery may not help urgency or groin pain we discussed risks of recurrence
[2024-05-23] VITALS (14 sets, daily range): BP systolic 115–149; BP diastolic 54–80; PULSE 59–73; RESP 12–20; TEMP 36.1–36.3; O2SAT 98–100
--- OUTSIDE RECORDS SUMMARY | 2024-05-23 00:30 | XMS_ITS | Encounter Summary ---
Author Organization [facility] Address [address] [place] [address] Care Team Providers Care Impregnator Helper Name Role Phone Ricardo Jones MD Primary Care Provider + Encounter Details Date Type Department Care Team (Late st Contact Info) Description 08/16/2020 Lab Requisition [facility] DermPath Lab [address] [facility], [place] [phone] Alfred Coronado MD [address] [facility] [place] [address] Social History Tobacco Use Types [...] AM CDT) Case Report Dermatopathology Report Case: [id number] Authorizing Provider: Alfred Coronado MD Collected: 08/12/2020 12:00 AM Ordering Location: [facility] DermPath Lab Received: 08/16/2020 06:05 AM Pathologist: Reuben Camacho MD Specimen: Skin, left neck 4:46 PM CDT DERMATOPATHOLOGY LABORATORY Final Diagnosis Specimen A. SKIN, left neck: NEUROFIBROMA (D36.10) 4:46 PM CDT DERMATOPATHOLOGY LABORATORY Clinical History Nevus vs BCC. Path# [id number]. 4:46 PM CDT DERMATOPATHOLOGY LABORATORY Gross Description Specimen A: Received is one formalin filled container labeled with the patient's name and designated left neck. The specimen consists of a shave biopsy measuring [id number]. Jar 0. 4:46 PM CDT DERMATOPATHOLOGY LABORATORY [...] characteristic determined by the Dermatopathology Laboratory at [facility], directed by Dr. Jose Alfredo Camacho. These tests need not be, and therefore are not, approved by the [place] Food and Drug Administration. The tests are used for clinical purposes. Billing Codes Specimen Charges Stain Charges 82822 1 4:46 PM CDT DERMATOPATHOLOGY LABORATORY Embedded Images 4:46 PM CDT DERMATOPATHOLOGY LABORATORY Pathology/Cytolog y TISSUE SPECIMEN FROM SKIN / Unknown 08/12/2020 08/16/2020 6:05 AM CDT Alfred Coronado MD LAB - PATHOLOGY/CYTO LOGY ORDERABLES DERMATOPATHOLOGY LABORATORY [facility] - Department of Dermatology [address], [address] [phone] documented in this encounter Visit Diagnoses Not on filedocumented in this encounter Care Teams Impregnator Helper Relationship Specialty Start Date End Date Ricardo Jones MD [address] [address] PCP - General 02/05/18 documented as of this encounter
--- OUTSIDE RECORDS SUMMARY | 2024-05-23 00:30 | XMS_ITS | Continuity of Care Document ---
Author Organization [facility] Address [id number] [place] [address] [place] [address] Phone Care Team Providers Care Him Specialist Name Role Phone Lavell Phan DO Unavailable Unavailable Advance Directives Directive Yes / No Effective Date File Name No Information Encounters Encounter Description Practice Location Reason(s) For Visit Diagnoses Date Provider Providers Copied on Encounter [facility], [id number] [place] [address] [address], [place], [place], [id number], tel:[phone] [facility] [place] No Information Sylvester Estes. [address] [place], [address], [place]. tel: [phone] Family History Family Member Type Diagnosis Age At Onset No Information Payers Payer name Insurance type Covered constitution party ID Authoriza tion(s) No Information Social History [...]
--- OUTSIDE RECORDS SUMMARY | 2024-05-23 00:30 | XMS_ITS | Clinical Summary ---
Author Organization [facility] Address [address] [place] [address] Care Team Providers Care Professor Of Archaeology Name Role Phone Ricardo Jones MD Primary Care Provider + Source Comments [facility],non-owned Affiliates and Associated Physician Practices is amultiple site organization consisting of ambulatory clinics and hospital sitesin [place], [place], [place] and [place]. This disclosure is being madepursuant to the Care Everywhere program and may not contain all information available regarding this patient. Last updated 17.[facility] [employer] Social History Tobacco Use Types Packs/Day Years [...] age to complete this topic Care Teams Professor Of Archaeology Relationship Specialty Start Date End Date Ricardo Jones MD [address] [facility] [address] [place] [address] PCP - General 02/05/18
--- OUTSIDE RECORDS SUMMARY | 2024-05-23 00:30 | XMS_ITS | Referral Summary ---
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
--- OUTSIDE RECORDS SUMMARY | 2024-05-23 00:30 | XMS_ITS | Clinical Summary ---
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
--- NOTE | 2024-05-23 07:17 | WPDHPUPDATE1 ---
History and Physical Update Update Date/Time: 05/23/24 07:17 History and Physical has been reviewed, including an updated exam of the patient. There are NO changes in the patient's condition. Risks, benefits, and alternatives have been discussed and questions answered. Patient agrees to proceed with procedure.
[2024-05-23 09:31] LABS: Glucose Point of Care 156 mg/dl (65-105)
[2024-05-23] MEDS: LACTATED RINGERS 1,000 ML 30 ML IV CONT (10:00)
--- NOTE | 2024-05-23 10:13 | P.PNAN_ITS ---
Anes - Initial Pre Proc Eval Procedure: Operation Date: 05/23/24 11:00 Proposed Procedures p Cystocele Repair - Ralf Mccollum MD Date/Time: 05/23/24 10:13 Surgeon: Ralf Mccollum MD Pre Op Diagnosis: cystocele Patient Data Age: 64 Gender: F Height: 1.78 m Weight: 94 kg Allergies Allergy/AdvReac Type Severity Reaction Status Date / Time No Known Allergies Allergy Unknown Verified 05/12/24 13:43 Home Medications ?Medication ?Instructions ?Recorded ?Confirmed ?Type pen needle, diabetic 32 gauge x #100 ea 02/21/22 05/12/24 Rx /32 (1st Tier Unifine Pentips) blood sugar diagnostic (Accu-Chek #100 ea 03/21/22 05/12/24 Rx Geetha Plus test strips) blood sugar diagnostic (Blood #50 ea 04/04/22 05/12/24 Rx Glucose Test strips) blood-glucose meter #1 ea 04/04/22 05/12/24 Rx blood-glucose meter (Accu-Chek #1 ea 04/04/22 05/12/24 Rx Geetha Plus Meter) empagliflozin 12.5 mg-metformin ER 2 tablet PO DAILY #180 tabs 06/11/23 05/12/24 Rx 1,000 mg tablet,extended rel 24 hr (Synjardy XR) pantoprazole 40 mg tablet,delayed 40 mg PO DAILY #90 tabs 06/25/23 05/12/24 Rx release aspirin 81 mg tablet,delayed 81 mg PO DAILY 07/12/23 05/12/24 History release (Adult Low Dose Aspirin) linaclotide 290 mcg capsule See Rx Instructions .Route 09/12/23 05/12/24 Rx (Linzess) .COMPLEX #90 caps atorvastatin 10 mg tablet See Rx Instructions .Route 10/07/23 05/12/24 Rx .COMPLEX #90 tabs lisinopril 10 mg tablet 10 mg PO DAILY 05/12/24 05/12/24 History buspirone 5 mg tablet 5 mg PO DAILY #90 tabs 05/19/24 Rx hydrocodone 5 mg-acetaminophen 325 1 tablet PO Q6H PRN pain #20 tabs 05/23/24 Rx mg tablet Laboratory Tests 05/23/24 09:29 POC Capillary Glucose 156 H mg/dl (65-105) Patient hx anesthesia problems: none Family hx anesthesia problems: none Results Review: All pre-operative results and documents have been reviewed as part of the pre- operative evaluation. [facility] Past Medical History Medical History Cystocele Nausea & vomiting Diarrhea Long-term insulin use Type 2 diabetes mellitus Cervical spondylosis with radiculopathy Thoracic spondylosis Left breast lump ROSALINDA (generalized anxiety disorder) TMJ arthralgia Cardiac murmur Infectious gastroenteritis Mesenteric adenitis IBS (irritable bowel syndrome) Elevated LFTs History of colon polyps Gastroesophageal reflux disease Postmenopausal Vitamin D insufficiency Hyperlipidemia Benign essential HTN Calcaneal fracture Gallbladder & bile duct stone, acute cholecystitis and obstruction Surgical History Surgical History History of dilation and curettage Status post right foot surgery ORIF of calcaneal fracture. History of cholecystectomy History of partial hysterectomy Family History Family History Sibling Acute myocardial infarction Mother CLL (chronic lymphocytic leukemia) Father Colon cancer Other Diabetes mellitus Family history of alcoholism Family history of arthritis Family history of cardiovascular disease Hypertension Social History Social History Social History: Surrogate decision maker: Kerrie Gomez, daughter. Code status: Full code. Smoking status: Never smoker Second hand tobacco smoke exposure: No Alcohol intake: never Alcohol use details: rarely Substance use: never Substance use type: does not use Do You Feel Safe in your Home?: Yes Lack of Transportation: No Lack of Food: Never True Current Housing: I Have Housing Concerned About Future Housing: No Difficulty Paying Gas/Electric Bills: No Difficulty Paying for Meds: No Currently Unemployed: No Education: Grade School Difficulty w/ Childcare or Family Care: No Living arrangements: with family Additional living arrangements comments: Son Occupation/Education: occupation 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 Gender identity (if verbalized by the patient): Female Sexual Orientation (if Verbalized by the Patient): Straight or Heterosexual Spiritual care concerns: No Anes - Eval Final PreProcedure Day of Procedure 05/23/24 10:13 Patient weight: overweight Lungs: normal air movement Airway: Mallampati scale class II and special considerations (Upper caps. ) Neurological: alert and oriented Last oral intake: >/= 8 hours ASA classification: III Emergent: no Anesthetic plan: proceed Anesthesia type and monitoring: general LMA and standard monitoring Results Review: All pre-operative results and documents have been reviewed as part of the pre- operative evaluation. HTN, hyperlipidemia, DM fsbs 156. EKG w NSR/SB. Informed Consent: The patient's anesthetic plan and its attendant risks and benefits were discussed with the patient/family/POA. Questions were solicited and answers pr ovided to the satisfaction of the patient/family/POA.
[2024-05-23] MEDS: ceFAZolin 2 GM/D5W 50 ML 2 GM/50 ML BAG IVPB (10:20)
[2024-05-23] MEDS: BUPIVACAINE/EPINEPHRINE 0.5% 10 ML VIAL 30 ML INFILTRATE (10:39)
--- NOTE | 2024-05-23 11:19 | P.OP_ITS ---
Procedure Note - Detailed Date of Procedure 05/23/24 Pre-op Diagnosis cystocele Post-op Diagnosis Same Procedure Performed Cystocele repair Cystoscopy Surgeon Ralf Mccollum MD Physician Chief Of Pathology [place] Anesthesia General Indications She has a symptomatic cystocele without incontinence. She would like correction. She presents for cystocele repair. Understands risk of bleeding, infection, damage surrounding organs, recurrence of cystocele, postoperative voiding dysfunction including incontinence retention, dyspareunia. She agrees to proceed Description of Procedure She was correctly identified. Informed consent obtained. For the operating room. She was given general anesthesia. She was placed in dorsal lithotomy position. All pressure points padded. She was given appropriate perioperative antibiotics. Time-out performed. Placed Umaña catheter. I placed a [place] retractor. I grasped the cystocele with Allis clamps. I infiltrated his tissues with local mixed with epinephrine and saline. A midline vaginal incision. I dissected out laterally taking great care not injure the vaginal wall or the bladder. I then performed a plication type cystocele repair using interrupted 0 Vicryl suture. There was excellent reduction of the cystocele. I trimmed excess vaginal mucosa. Then close the vaginal mucosa running 2-0 Vicryl suture. Examination revealed reduction of the cystocele with good apical support. Cystoscopy revealed repairing bladder without abnormalities. No tumors or stones. No abnormal red patches. No foreign bodies. Ureteral patency was documented. Bladder was left partially full. She was awakened transferred to PACU in stable condition. Estimated Blood Loss 10 Drains No Packing No Pathology None sent Complications No immediate complications Condition Stable Disposition PACU
[2024-05-23 11:23] LABS: Glucose Point of Care 130 mg/dl (65-105)
[2024-05-23] MEDS: fentaNYL CITRATE INJ (*CRX) 100 MCG/2 ML VIAL 25 MCG IV PUSH ×3 (11:52→12:04)
[2024-05-23] MEDS: oxyCODONE HCL (*CRX) 5 MG TAB IR PO (13:20)
== END 2024-05-23 13:50 | disposition home or self-care (01) ==
PROVIDERS: PCP Family Medicine Adolescent Medicine; Visit Provider Urology
PROC: (CPT 57260; principal; 2024-05-23 11:00)
DX: N81.10 Cystocele, unspecified (principal); E11.9 Type 2 diabetes mellitus without complications
CPT/HCPCS: 57240; 82948; A9270; C1769; J0690; J2003; J2250; J2405; J2704; J3010; J7120

== ENCOUNTER 2025-02-10 08:33 | Outpatient (CLI) | payer BC, SELFPAY ==
--- NOTE | ~2025-02-10 | MMUS_ITS ---
EXAMINATION: MM diagnostic nba BI w barney, US breast LT limited HISTORY: Palpable abnormality over the sternum. Previously scheduled for ultrasound guided core biopsy, with cancellation. NOTE: THIS CLINICAL FINDING IS NOT IN EITHER BREAST. TECHNIQUE: Craniocaudal and mediolateral oblique 3-D tomosynthesis images were obtained and synthetic 2-D images were generated. CAD analysis was submitted and interpreted. Grayscale sonography over the area(s) of interest with color Doppler if there is a finding. COMPARISON: July and May,. 2021. BREAST PARENCHYMAL COMPOSITION: Not Dense: There are scattered areas of fibroglandular MAMMOGRAM FINDINGS: No suspicious masses are seen. There are no suspicious calcifications. No unexplained architectural distortion is seen. There are no skin or nipple abnormalities identified. There is no adenopathy seen on the images submitted. ULTRASOUND FINDINGS: The palpable area, overlying the sternum, there is a circumscribed, ovoid, homogeneous, hypoechoic mass with parallel orientation, not significantly changed in sonographic appearance. IMPRESSION: No mammographic evidence to suggest malignancy is seen. PLEASE NOTE THAT THE BENIGN-APPEARING MASS IS NOT IN THE BREAST TISSUE, BUT OVER THE STERNUM IN THE CHEST WALL. The patient may return to screening mammography as per ACR guidelines. BI-RADS 2 - Benign. Reviewed, dictated and finalized at location C. APEUTIC RECREATION SPECIALIST IMPRESSION: No mammographic evidence to suggest malignancy is seen. PLEASE NOTE THAT THE BE NIGN-APPEARING MASS IS NOT IN THE BREAST TISSUE, BUT OVER THE STERNUM IN THE CH EST WALL. The patient may return to screening mammography as per ACR guidelines . BI-RADS 2 - Benign.
--- OUTSIDE RECORDS SUMMARY | 2025-02-10 08:42 | XMS_ITS | Encounter Summary ---
Author Organization [facility] Address [address] [place] [address] Care Team Providers Care Regulatory Affairs Director Name Role Phone Ricardo Jones MD Primary Care Provider + Encounter Details Date Type Department Care Team (Late st Contact Info) Description 08/16/2020 Lab Requisition [facility] DermPath Lab [address] [facility] [place] [address] Alfred Coronado MD [address] [facility] [place], [place] [id number] Social History Tobacco Use Types Packs/Day Years Used Date Smoking Tobacco: Never Assessed Comments Unknown Sex and Gender Information Value Date Recorded Sex Assigned at Not on file Legal Sex Female 3:41 PM PHYSICIAN NEONATOLOGY Gender Identity Not on file Sexual Orientation Not on file documented as of this encounter Plan of Treatment Not on file documented as of this encounter Procedures Procedure Name Priority Date/Time Associated Diagnosis Comments DERMATOPATHOLOGY Routine 08/12/2020 12:0 0 AM CDT documented in this encounter Results * DERMATOPATHOLOGY (08/12/2020 12:00 AM CDT) Case Report Dermatopathology Report Case: [id number] Authorizing Provider: Alfred Coronado MD Collected: 08/12/2020 12:00 AM Ordering Location: [facility] DermPath Lab Received: 08/16/2020 06:05 AM Pathologist: Reuben Camacho MD Specimen: Skin, left neck 4:46 PM CDT DERMATOPATHOLOGY LABORATORY Final Diagnosis Specimen A. SKIN, left neck: NEUROFIBROMA (D36.10) 4:46 PM CDT DERMATOPATHOLOGY LABORATORY at 1646 CDT Clinical History Nevus vs BCC. Path# [id number]. 4:46 PM CDT DERMATOPATHOLOGY LABORATORY Gross Description Specimen A: Received is one formalin filled container labeled with the patient's name and designated left neck. The specimen consists of a shave biopsy measuring 2w3d3st. Jar 0. 4:46 PM CDT DERMATOPATHOLOGY LABORATORY [...] determined by the Dermatopathology Laboratory at [facility], directed by Dr. Jose Alfredo Camacho. These tests need not be, and therefore are not, approved by the [place] Food and Drug Administration. The tests are used for clinical purposes. Billing Codes Specimen Charges Stain Charges 96926 1 4:46 PM CDT DERMATOPATHOLOGY LABORATORY Embedded Images 4:46 PM CDT DERMATOPATHOLOGY LABORATORY Pathology/Cytolog y TISSUE SPECIMEN FROM SKIN / Unknown 08/12/2020 08/16/2020 6:05 AM CDT us Alfred Coronado MD LAB - PATHOLOGY/CYTOLOGY ORDER MARIA R Final Result DERMATOPATHOLOGY LABORATORY [facility] - Department of Dermatology [address], [address] [phone] documented in this encounter Visit Diagnoses Not on filedocumented in this encounter Care Teams Regulatory Affairs Director Relationship Specialty Start Date End Date Ricardo Jones MD [address] [address] PCP - General 02/05/18 documented as of this encounter
--- OUTSIDE RECORDS SUMMARY | 2025-02-10 08:42 | XMS_ITS | Clinical Summary ---
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
--- OUTSIDE RECORDS SUMMARY | 2025-02-10 08:42 | XMS_ITS | Clinical Summary ---
Author Organization [facility] Address [address] [place] [address] Care Team Providers Care Captain Cannery Tender Name Role Phone Ricardo Jones MD Primary Care Provider + Source Comments [facility],non-owned Affiliates and Associated Physician Practices is amultiple site organization consisting of ambulatory clinics and hospital sitesin [place], [place], [place] and [place]. This disclosure is being madepursuant to the Care Everywhere program and may not contain all information available regarding this patient. 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 Gender Identity Not on file Sexual Orientation [...] 2008 ZOSTER VACCINE (1 of 2) 2008 DEPRESSION SCREENING 02/20/2024 COVID-19 VACCINE (1 - 2024-2 6 season) 2024 INFLUENZA VACCINE (#1) 2024 Respiratory Syncytial Virus (RSV) Vaccine Pt: or [...] on patient's age to complete this topic Insurance * Guarantor: PRISCILA HINSON Account Type Relation to Patient Date of Phone Billing Address Personal/Family [address] [place], [place] [phone] [facility] SELF PAY NO INSURANCE Member Subscriber Plan / Payer (Ef fective for All Dates) Name:Priscila Hinson Member ID:Not on file Relation to Subscriber:Not on file Name:PRISCILA HINSON Subscriber ID:Not on file Address: [address] [place] [id number] Payer ID:Not on file Group ID:Not on file Type:Self Pay Address: [facility] * Guarantor: PRISCILA HINSON Account Type Relation to Patient Date of Phone Billing Address Personal/Family [address] [place] [address] HEALTHCARE SELF PAY NO INSURANCE Member Subscriber Plan / Payer (Ef fective for All Dates) Name:Priscila Hinson Member ID:Not on file Relation to Subscriber:Not on file Name:PRISCILA HINSON Subscriber ID:Not on file Address: [address] [place] [address] Payer ID:Not on file Group ID:Not on file Type:Self Pay Address: [place], [place] * Guarantor: PRISCILA HINSON Account Type Relation to Patient Date of Phone Billing Address Personal/Family [address] [place] [address] HEALTHCARE SELF PAY NO INSURANCE Member Subscriber Plan / Payer (Ef fective for All Dates) Name:Priscila Hinson Member ID:Not on file Relation to Subscriber:Not on file Name:PRISCILA HINSON Subscriber ID:Not on file Address: [address] [place] [address] Payer ID:Not on file Group ID:Not on file Type:Self Pay Address: [place], [place] Care Teams Captain Cannery Tender Relationship Specialty Start Date End Date Ricardo Jones MD [address] [address] PCP - General 02/05/18
== END 2025-02-10 08:34 | disposition home or self-care (01) ==
LOC: CHSIMG 08:36
PROVIDERS: PCP Family Medicine Adolescent Medicine; Visit Provider Family Medicine
DX: N63.20 Unspecified lump in the left breast, unspecified quadrant (principal); D17.1 Benign lipomatous neoplasm of skin and subcutaneous tissue of trunk; R93.89 Abnormal findings on diagnostic imaging of other specified body structures
CPT/HCPCS: 76642; 77062; 77066; G0279